=== PATIENT | female | born 1940 | race Caucasian/White ===

== ENCOUNTER 2020-10-18 11:02 | Outpatient (REF) | payer MEDICARE, MEDICAID, SELFPAY | END 2020-10-18 11:03 | disposition home or self-care (01) | LOC: HO.LAB 11:02 | PROVIDERS: Visit Provider Internal Medicine | DX: Z20.822 Contact with and (suspected) exposure to COVID-19 (principal) | CPT/HCPCS: 36415; C9803; U0003 ==

== ENCOUNTER 2020-10-27 10:34 | Outpatient (REF) | payer MEDICARE, MEDICAID, SELFPAY | END 2020-10-27 10:35 | disposition home or self-care (01) | LOC: HO.LAB 10:34 | PROVIDERS: Visit Provider Internal Medicine | DX: Z20.822 Contact with and (suspected) exposure to COVID-19 (principal) | CPT/HCPCS: 36415; C9803; U0003 ==

== ENCOUNTER 2022-09-27 13:50 | Emergency (ER) | payer MEDICARE, MEDICAID, SELFPAY ==
--- NOTE | 2022-09-27 14:08 | ECG_ITS ---
Test Reason : FALL Blood Pressure : / mmHG Vent. Rate : 074 BPM Atrial Rate : 074 BPM P-R Int : 130 ms QRS Dur : 084 ms QT Int : 378 ms P-R-T Axes : 023 -11 -23 degrees QTc Int : 419 ms Normal sinus rhythm Septal infarct (cited on or before 01-MAY-2019) Abnormal ECG When compared with ECG of 01-MAY-2019 08:05, Premature atrial complexes are no longer Present Nonspecific T wave abnormality now evident in Anterolateral leads Referred By: Ana Sanchez Electronically Signed By:PASQUALE ZAVALA
[2022-09-27 14:14] VITALS: BMI 28.3
--- NOTE | 2022-09-27 14:17 | ED.GENADULT ---
HPI - General Adult General Chief complaint: Fall Stated complaint: AMS Time Seen by Provider: 09/27/22 14:07 Source: patient and EMS Mode of arrival: EMS History of Present Illness HPI narrative: 81-year-old female with what appears to be possible expressive aphasia is communicating that she was walking with her walker when she fell and reports left shoulder pain. We are attempting obtain collateral information and patient is currently hemodynamically stable without any neurologic defects. As per EMS that this other patient fall and so rendered day and due to patient's developmental delays and difficulties with speech as well as hearing deficits they were concerned that she was an altered mental status. Related Data Allergies Allergy/AdvReac Type Severity Reaction Status Date / Time bacitracin [From CORTISPORIN] Allergy Unknown UNKNOWN Unverified 06/30/20 15:57 hydrocortisone Allergy Unknown UNKNOWN Unverified 06/30/20 15:57 [From CORTISPORIN] neomycin [From CORTISPORIN] Allergy Unknown UNKNOWN Unverified 06/30/20 15:57 polymyxin B Allergy Unknown UNKNOWN Unverified 06/30/20 15:57 [From CORTISPORIN] Cortisporin Allergy Unknown Uncoded 07/06/11 00:00 From CORTISPORIN Allergy Unknown UNKNOWN Uncoded 06/30/20 15:57 Review of Systems Review of Systems: Pertinent positives and negatives as stated in HPI PMFSH Past Medical History Source: nursing notes reviewed Social History Social History Advance Directives: No Advance Directives Information Provided: No Physical Exam ED Vital Signs: Vital Signs - 24 hr 09/27/22 15:04 Temperature 98.1 F Pulse Rate 74 Respiratory Rate 18 Blood Pressure 185/96 H Pulse Oximetry 97 Oxygen Delivery Method Room Air BMI result Body Mass Index 28.3 VITAL SIGNS: Reviewed. GENERAL: Well developed, well nourished, in no acute distress. HEAD: Normocephalic/atraumatic EYES: PERRLA, EOMI EARS: Ext canals without abnormality OROPHARYNX: no oral lesions noted, posterior pharynx clear NECK: Supple, no adenopathy LUNGS: Normal breath sounds. No adventitious sounds or accessory muscle use. SpO2<97> CARDIOVASCULAR: Regular rate and rhythm without noted murmurs, no JVD or lower extremity edema. ABDOMEN: Soft, non-tender, non-distended with bowel sounds. MUSCULOSKELETAL: No tenderness, deformities, or effusions noted on gross inspection. EXTREMITIES: No cyanosis, clubbing or edema; SHOULDER PAIN: No deformity, erythema, ecchymosis, laceration SKIN: Inspection of the skin reveals no rashes NEUROLOGIC: Alert and oriented x 4. Strength and sensation to light touch were grossly intact x 4. Course Course Course Narrative: 81-year-old female who after obtaining collateral information is under the care of a group that manages her money, patient has been deemed to live independently but receives 25 hours of assistance with everyday activities to include management of her funds. Patient has significant developmental delays and lives on her own otherwise. The guardian states that patient is at her baseline, I myself observed patient ambulating at baseline with her walker without noted difficulty. The walker is strictly for visual limitations that patient has at baseline and not due to motor deficits. I reviewed all of patient's laboratory an EKG workup and there are no acute findings to otherwise raise concerns. The guardian will be transported the patient back to her home. In addition, they will follow up with the patient in sure that she gets in to see her primary care provider. Medical Decision Making Lab Data Result Diagrams: 09/27/22 14:31 09/27/22 14:31 Labs: Lab Results 09/27/22 09/27/22 12 Range/Units 14:31 14:31 14:31 WBC 5.8 (4.8-10.8) X10*3/uL RBC 5.70 H (4.20-5.50) X10*6/uL Hgb 16.1 H (12.0-16.0) g/dl Hct 50.2 H (37.0-47.0) % MCV 88.1 (80.0-98.0) fL MCH 28.2 (27.0-33.0) pg MCHC 32.1 (31.0-35.0) g/dl RDW 14.6 (11.0-16.0) % Plt Count 211 (160-400) X10*3/uL MPV 10.4 (9.4-12.3) fL Immature Gran % (Auto) 0.2 (0.0-0.4) % Neut % (Auto) 67.0 (45-73) % Lymph % (Auto) 24.1 (20-40) % [place] % (Auto) 7.7 (2-11) % Eos % (Auto) 0.7 (0-4) % Baso % (Auto) 0.3 (0-2) % Lymph # (Auto) 1.4 (1.2-4.9) X10*3/uL [place] # (Auto) 0.5 (0.1-1.2) X10*3/uL Eos # (Auto) 0.0 (0.0-0.4) X10*3/uL Baso # (Auto) 0.0 (0.0-0.2) X10*3/uL Abs Immat Gran (auto) 0.01 (0.00-0.03) X10*3/uL Absolute Neuts (auto) 3.9 (2.0-8.3) x10*3/uL Absolute Nucleated RBC 0.000 (0.0-0.012) X10*3/uL Nucleated RBC % (auto) 0.0 (0.0-0.2) /100WBC PT 11.0 (10.0-13.1) SEC INR 1.0 (0.9-1.1) Sodium 141 (135-145) mmol/L Potassium 3.9 (3.3-5.1) mmol/L Chloride 107 (96-108) mmol/L Carbon Dioxide 27 (22-29) mmol/L Anion Gap 11 L (12-20) BUN 16 (9-16) mg/dL Creatinine 0.83 (0.5-1.4) mg/dL Estim Creat Clear Calc 46.8 Estimated GFR > 60 Random Glucose 107 (60-115) mg/dL Lactic Acid (0.5-2.0) mmol/L Calcium 9.2 (8.4-10.2) mg/dL Total Bilirubin 0.7 (0.0-1.0) mg/dL AST 13 (5-31) U/L ALT 6 (0-31) U/L Alkaline Phosphatase 78 (39-117) U/L Troponin I High Sens (<3.5-17.0) ng/L Total Protein 6.9 (6.5-8.0) g/dL Albumin 4.0 (3.5-5.0) g/dL Influenza Type A (PCR) (Negative) Influenza Type B (PCR) (Negative) RSV RNA Qual (PCR) (Negative) SARS-CoV-2 RNA (RT-PCR) (Negative) 09/27/22 09/27/22 09/27/22 Range/Units 14:31 14:31 14:31 WBC (4.8-10.8) X10*3/uL RBC (4.20-5.50) X10*6/uL Hgb (12.0-16.0) g/dl Hct (37.0-47.0) % MCV (80.0-98.0) fL MCH (27.0-33.0) pg MCHC (31.0-35.0) g/dl RDW (11.0-16.0) % Plt Count (160-400) X10*3/uL MPV (9.4-12.3) fL Immature Gran % (Auto) (0.0-0.4) % Neut % (Auto) (45-73) % Lymph % (Auto) (20-40) % [place] % (Auto) (2-11) % Eos % (Auto) (0-4) % Baso % (Auto) (0-2) % Lymph # (Auto) (1.2-4.9) X10*3/uL [place] # (Auto) (0.1-1.2) X10*3/uL Eos # (Auto) (0.0-0.4) X10*3/uL Baso # (Auto) (0.0-0.2) X10*3/uL Abs Immat Gran (auto) (0.00-0.03) X10*3/uL Absolute Neuts (auto) (2.0-8.3) x10*3/uL Absolute Nucleated RBC (0.0-0.012) X10*3/uL Nucleated RBC % (auto) (0.0-0.2) /100WBC PT (10.0-13.1) SEC INR (0.9-1.1) Sodium (135-145) mmol/L Potassium (3.3-5.1) mmol/L Chloride (96-108) mmol/L Carbon Dioxide (22-29) mmol/L Anion Gap (12-20) BUN (9-16) mg/dL Creatinine (0.5-1.4) mg/dL Estim Creat Clear Calc Estimated GFR Random Glucose (60-115) mg/dL Lactic Acid 1.3 (0.5-2.0) mmol/L Calcium (8.4-10.2) mg/dL Total Bilirubin (0.0-1.0) mg/dL AST (5-31) U/L ALT (0-31) U/L Alkaline Phosphatase (39-117) U/L Troponin I High Sens 4.2 (<3.5-17.0) ng/L Total Protein (6.5-8.0) g/dL Albumin (3.5-5.0) g/dL Influenza Type A (PCR) NEGATIVE (Negative) Influenza Type B (PCR) NEGATIVE (Negative) RSV RNA Qual (PCR) NEGATIVE (Negative) SARS-CoV-2 RNA (RT-PCR) NEGATIVE (Negative) Independent Interpretation I performed an independent interpretation of an: EKG Interpretation: Normal sinus rhythm, HR-74, no STEMI, NM/QRS/QTC are within normal limits. Discharge Plan Discharge Clinical Impression: Fall Patient Disposition: Home, Self-Care Instructions: Fall Prevention for Older Adults (ED) Additional Instructions: 1. Resume all home medications as prescribed. 2. Follow-up with primary care provider in the next 1-2 days. Return to the ER for any worsening symptoms.
[2022-09-27 14:38] LABS: MANUAL DIFF FLAG NO
[2022-09-27 14:40] LABS: Basophils Percent Auto 0.3 % (0-2); Eosinophils Percent Auto 0.7 % (0-4); Hematocrit 50.2 % (37.0-47.0); Hemoglobin 16.1 g/dl (12.0-16.0); Imm Gran Abs Auto 0.01 X10*3/uL (0.00-0.03); Imm Gran Pct Auto 0.2 % (0.0-0.4); Lymphocytes Absolute Auto 1.4 X10*3/uL (1.2-4.9); Lymphocytes Percent Auto 24.1 % (20-40); Mean Corpuscular HGB Conc 32.1 g/dl (31.0-35.0); Mean Corpuscular Hemoglobin 28.2 pg (27.0-33.0); Mean Corpuscular Volume 88.1 fL (80.0-98.0); Mean Platelet Volume 10.4 fL (9.4-12.3); Monocytes Absolute Auto 0.5 X10*3/uL (0.1-1.2); Monocytes Percent Auto 7.7 % (2-11); Neutrophils Absolute Auto 3.9 x10*3/uL (2.0-8.3); Platelet Count 211 X10*3/uL (160-400); Red Cell Distribution Width 14.6 % (11.0-16.0); White Blood Count 5.8 X10*3/uL (4.8-10.8)
[2022-09-27 14:53] LABS: Lactic Acid 1.3 mmol/L (0.5-2.0)
[2022-09-27 15:04] VITALS: BP 185/96; PULSE 74; RESP 18; TEMP 36.7; O2SAT 97
[2022-09-27 15:04] LABS: Troponin-I High Sensitivity 4.2 ng/L (<3.5-17.0)
[2022-09-27 15:08] LABS: Alanine Aminotransferase 6 U/L (0-31); Alkaline Phosphatase 78 U/L (39-117); Anion Gap 11 (12-20); Aspartate Amino Transferase 13 U/L (5-31); Bilirubin Total 0.7 mg/dL (0.0-1.0); Blood Urea Nitrogen 16 mg/dL (9-16); Calcium 9.2 mg/dL (8.4-10.2); Carbon Dioxide 27 mmol/L (22-29); Chloride 107 mmol/L (96-108); Creatinine Clr Calc Pharmacy 46.8; Estimated Glomerular Filt Rate > 60; Glucose Random 107 mg/dL (60-115); Potassium 3.9 mmol/L (3.3-5.1); Sodium 141 mmol/L (135-145); Total Protein 6.9 g/dL (6.5-8.0)
[2022-09-27 15:20] LABS: Influenza A PCR NEGATIVE (Negative); Influenza B PCR NEGATIVE (Negative); Resp Syncy Virus RNA Qual PCR NEGATIVE (Negative); SARS COV2 PCR INHOUSE NEGATIVE (Negative)
--- OUTSIDE RECORDS SUMMARY | 2022-09-27 15:41 | XMS_ITS | Continuity of Care Document ---
:1940 Author Organization [facility] Address [address] [place] [address]- Care Team Providers Name Role Phone Edilson [place], Stacy Tsang [facility] Care [id number] Date[facility] - 12/09/[address] [address] Attending Physician: Stacy Waggoner MD Admitting Physician: Stacy Waggoner MD Referring Physician: Stacy Waggoner MD Allergies, Adverse Reactions, Alerts Substance Reaction Severity Status Cortisporin Otic Active Medications Ativan Tablet = 0.25 mg, By Mouth, PRN as needed for anxiety, 0 Refills, Maintenance, 05/03/14 9:10:40 Start Date: 05/03/14 Status: OrderedCALCIUM CALCIUM, 500 mg, By Mouth, Daily, Refills 0, Maintenance, 05/03/14 9:05:23, Compound Start Date: 05/03/14 Status: OrderedCelexa 40 mg oral tablet 1 tablet = 40 mg, By Mouth, Daily, 0 Refills, Maintenance, 05/03/14 9:06:13 Start Date: 05/03/14 Status: OrderedColace sodium 100 mg oral capsule 1 capsule = 100 mg, By Mouth, 2 times a day, 0 Refills, Maintenance, 05/03/14 9:05:00 Start Date: 05/03/14 Status: OrderedEvista 60 mg oral tablet 1 tablet = 60 mg, By Mouth, Daily, 0 Refills, Maintenance, 05/03/14 9:04:48 Start Date: 05/03/14 Status: Orderedferrous sulfate 325 mg oral tablet 1 tablet = 325 mg, By Mouth, 3 times a day, 0 Refills, Maintenance, 05/03/14 9:06:00 Start Date: 05/03/14 Status: OrderedFluticasone Nasal Daily, 0 Refills, Maintenance, 05/03/14 9:08:43 Start Date: 05/03/14 Status: Orderedibuprofen 600 mg oral tablet 1 tablet = 600 mg, By Mouth, 4 times a day, PRN as needed for pain, 0 Refills, Maintenance, 149:11:25 Start Date: 05/03/14 Status: Orderedlisinopril 40 mg oral tablet 1 tablet = 40 mg, By Mouth, Daily, 0 Refills, Maintenance, 05/03/14 9:05:13 Start Date: 05/03/14 Status: Orderedmeloxicam 7.5 mg oral tablet 1 tablet = 7.5 mg, By Mouth, Daily, 0 Refills, Maintenance, 05/03/14 9:06:26 Start Date: 05/03/14 Status: OrderedMilk of Magnesia 30 mL, By Mouth, PRN as needed for constipation, 0 Refills, Maintenance, 05/03/14 9:10:12 Start Date: 05/03/14 Status: OrderedMultivitamin By Mouth, Daily, 0 Refills, Maintenance, 05/03/14 9:08:18 Start Date: 05/03/14 Status: OrderedNuLYTELY with Flavor Packs oral powder for reconstitution See Instructions, 4 liters By Mouth Once, # 4 L, 0 Refills, Maintenance, 05/03/14 9:55:15, 4 liters By Mouth Once Start Date: 05/03/14 Status: Orderedomeprazole 20 mg oral enteric coated capsule 1 capsule = 20 mg, By Mouth, Daily, 0 Refills, Maintenance, 05/03/14 9:06:58 Start Date: 05/03/14 Status: OrderedPOLYTHGLYCOL POWDER POLYTHGLYCOL POWDER, 17 Gm, By Mouth, Daily, Refills 0, Maintenance, 05/03/14 9:07:34, Compound Start Date: 05/03/14 Status: Orderedpravastatin 10 mg oral tablet 1 tablet = 10 mg, By Mouth, Daily at bedtime, 0 Refills, Maintenance, 05/03/14 9:06:42 Start Date: 05/03/14 Status: OrderedRobitussin DM Liquid PRN Pain , Severe, 0 Refills, Maintenance, 05/03/14 9:09:49 Start Date: 05/03/14 Status: OrderedTylenol Caplet = 325 mg, By Mouth, Every 4 hours, PRN as needed for pain, 0 Refills, Maintenance, 05/03/14 9:09:12 Start Date: 05/03/14 Status: OrderedTYLENOL WITH CODEIN #3 NEEDED TYLENOL WITH CODEIN #3 NEEDED, 1 TAB, By Mouth, Refills 0, Maintenance, 05/03/14 9:11:54, Compound Start Date: 05/03/14 Status: Ordered Problem List Condition Effective Dates Status Health Status Informant Anxiety(Confirmed) Active Benign essential Active hypertension(Confirmed) Diverticulosis of colon(Confirmed) Active GERD (gastroesophageal reflux Active disease)(Confirmed)
--- OUTSIDE RECORDS SUMMARY | 2022-09-27 15:41 | XMS_ITS ---
:1940 Author Name Waggoner, Stacy Care Team Providers Name Role Phone Stacy Waggoner Unavailable Unavailable PROBLEMS Type Condition ICD9-CM Code [id number] Onset Condition SNOMED Code Code Dates Status Problem Hallux valgus M20.11 Active 446014 01 (acquired), right foot Problem Hallux valgus M20.12 Active 956419 01 (acquired), left foot Problem Hammer toe of M20.42 Active 540865 [id number] left foot Problem Hammer toe of M20.41 Active 986836 [id number] right foot ALLERGIES Substance Reaction Event Type Date Status Cortisporin Unknown Drug Allergy Dec, Active ENCOUNTERS Encounter Location Date Diagnosis [address] Sep, [facility] [address] Jun, [place] [address] Dec, [place] unguium B35.1 ; [place] Pain in right t oe(s) [address] M79.674 ; Pain i n left toe(s) M79.675 a nd Ingrowing nail L 60.[address] Aug, [place] [address] May, [place] unguium B35.1 ; [place] Ingrowing nail L60.0 ; [address] Pain in right to e(s) M79.674 and Pain in left toe(s) M79. [address] February, [place] unguium B35.1 ; [place] Ingrowing nail L60.0 ; [address] Pain in right to e(s) M79.674 and Pain in left toe(s) M79. [address] Apr, [place] [address] Mar, [place] [address] Nov, [place] unguium B35.1 ; [place] Pain in right t oe(s) [address] M79.674 ; Pain i n left toe(s) M79.675 ; Hammer toe of left foot M20.42 ; Hammer toe of right foot M20.41 ; [place] llux valgus (acquired ), left foot M20.12 and Hallux valgus (acquired ), right foot M20.1 1 IMMUNIZATIONS Vaccine Route Administration Date Status COVID-19 Tutor Trove & Titus/Shola Unknown Aug 29, 2021 Administered SOCIAL HISTORY Qualifiers Date Never Smoker REASON FOR REFERRAL FUNCTIONAL STATUS PLAN OF CARE Activity Details Future/Pending Procedure [id number] NAIL, 6 [place] MOR E Future/Pending Procedure 98677-Gherjcga Plate Future/Pending Procedure [id number]-[id number] NAIL, 6 OR MOR E Future/Pending Procedure 55038-Bonunxld Plate Future/Pending Procedure 81208-Zpbaeqxn Plate Each Ad ditional Future/Pending Procedure [id number]-[id number] NAIL, 6 OR MOR E Future/Pending Procedure 05395-Sovvbihm Plate Future/Pending Procedure 70937-Hyhefdue Plate Each Ad ditional Future/Pending Procedure [id number] NAIL, 6 OR MOR E VITAL SIGNS Height 5 ft 4 in in 2022-01-04 Weight 159 lbs 2022-01-04 BMI 27.29 kg/m2 2022-01-04 Heart Rate 78 /min 2019-12-07 Temperature 97.0 degrees Fahrenheit 2021-02-23 Blood pressure systolic 149 mm Hg 2021-02-23 Blood pressure diastolic 67 mm Hg 2021-02-23 MEDICATIONS Medication Instructions Dosage Frequency Start End Duration Statu s Date Date CeleXA 40 MG Orally Once a 0.5 tablet 24h 30 day(s) Active day Colace 100 MG Orally twice a 1 capsule 12h N ot-Takin day as needed g Calcium 500 MG Orally Twice a 1 tablet 12h 30 day(s) Active day with meals Loratadine 10 MG Orally Once a 1 tablet 24h 30 day(s ) Active day Robitussin DM Active Lisinopril 40 MG Orally Once a 1 tablet 24h 30 day(s ) Not-Takin day g Senna 8.6 MG Orally Once a 2 tablets 24h 30 day(s) N ot-Takin day at bedtime g as needed Evista 60 MG Orally Once a 1 tablet 24h 30 day(s) No t-Takin day g amLODIPine Orally Once a 1 tablet 24h 30 day(s) Acti ve Besylate 2.5 MG day Multivitamin Active Pravastatin Orally Once a 1 tablet 24h 30 day(s) Act azucena Sodium 40 MG day Zantac 150 MG Orally Once a 1 tablet 24h 30 day(s) A ctive day Ferrous Sulfate Orally Once a 1 tablet 24h 30 day(s) Not-Takin 325 (65 Fe) MG day g Protopic Active PriLOSEC OTC 20 Orally Once a 1 tablet 24h 30 day(s) Active MG day 30 minutes before morning meal Milk of Magnesia Active Ibuprofen Active PROCEDURES Procedure Date Ordered Result Body Site Avulsion Plate Each Additional January 04, 2022 Avulsion Plate Each Additional February 23, 2021 DEBRIDE NAIL, 6 OR MORE May 25, 2021 Avulsion Plate February 23, 2021 Avulsion Plate Each Additional May 25, 2021 Avulsion Plate January 04, 2022 DEBRIDE NAIL, 6 OR MORE Dec 07, 2019 DEBRIDE NAIL, 6 OR MORE January 04, 2022 Avulsion Plate May 25, 2021 DEBRIDE NAIL, OR MORE February 23, 2021 RESULTS No Results REASON FOR VISIT Insurance Providers [facility] Member Patient Patient Patient Patient Patient Subscriber Subscriber Subscriber Group Insurance Plan Plan Plan Plan ID Relationship Address Phone Name Date of ID Name Date of No Type Insurance Insurance Insurance Coverage to Subscriber Address Phone Name Dates Medicare National [id number] Medicare self Pinky [id number] Govt Sv[address] [facility] [address] [facility] [place] [address] MEDICAL (GENERAL) HISTORY Type Description Date Medical History Anxiety Medical History Cataracts Surgical History No know Surgical history
--- OUTSIDE RECORDS SUMMARY | 2022-09-27 15:41 | XMS_ITS | Continuity of Care Document ---
:1940 Author Organization [facility] Address [address] [place] [address]- Care Team Providers Name Role Phone Stacy Waggoner MD Primary Care Physician Encounter [facility] Date(s): 11/23/20 - 12/23/[address] [address] Attending Physician: Spike Neri Admitting Physician: Spike Neri Referring Physician: trSpike Allergies, Adverse Reactions, Alerts Substance Reaction Severity [...] 0 Refills, Maintenance, 05/03/14 9:09:49 Start Date: 7/21/14 Status: OrderedTylenol Caplet = 325 mg, By [...]
== END 2022-09-27 18:18 | disposition home or self-care (01) ==
PROVIDERS: Emergency Provider Student in an Organized Health Care Education/Training Program
DX: M25.512 Pain in left shoulder (principal); R41.82 Altered mental status, unspecified; Z79.899 Other long term (current) drug therapy; Z20.822 Contact with and (suspected) exposure to COVID-19
CPT/HCPCS: 0241U; 80053; 83605; 84484; 85025; 85610; 87040; 87147; 87205; 93005; 99283

== ENCOUNTER 2025-01-13 14:28 | Outpatient (REF) | payer MEDICARE, MEDICAID, SELFPAY ==
[2025-01-13 16:03] LABS: Vitamin B12 1046 pg/mL (200-900)
--- OUTSIDE RECORDS SUMMARY | 2025-01-13 17:15 | XMS_ITS | Clinical Summary ---
Author Organization [facility] Address [address] [place] [phone] Phone Care Team Providers Care Account Support Associate Name Role Phone Elio Box Primary Care Provider [phone] Allergies Active Allergy Reactions Criticality Noted Date Comments Gxwyhovr-Jwjuigbquh-Heyw-Hc 04/06/20 11 No reaction documented Medications aspirin 81 mg EC tablet Take 1 Tablet by mouth daily. 06/04/20 24 Active cholecalcifero l, vitamin D3, 25 mcg (1,000 unit) tablet,chewabl e Take 1 Tablet by mouth daily. 08/27/20 23 Active cyanocobalamin , vitamin B-12, 1,500 mcg tablet,chewabl e Take 1 Tablet by mouth daily. 03/03/20 24 Active guaifenesin/de xtromethorphan (ROBITUSSIN-DM ORAL) Take by mouth 4 times daily as needed. Active sennosides 8.6 mg capsule Take by mouth as needed. Active triamcinolone (KENALOG) 0.1 % ointment Apply 1 Film topically 2 times daily for 14 days. 02/06/20 24 Active calcium carbonate (CALCIUM 500 ORAL) Take 1 Tablet by mouth 2 times daily. 03/03/20 24 Active magnesium hydroxide (MILK OF MAGNESIA ORAL) Take by mouth. Prn Active MULTIVITAMIN ORAL Take 1 Tab by mouth daily. Active calcium carbonate (Tums) 500 mg (200 mg elemental calcium) chewable tablet Chew 1 tablet (500 mg total) 2 (two) times a day. 60 each 11 09/09/20 24 Active FeroSuL 325 mg (65 mg iron) tablet TAKE 1 TABLET BY MOUTH DAILY 90 tablet 1 09/22/20 24 Active cyanocobalamin (VITAMIN B-12) 500 mcg tablet TAKE 1 TABLET BY MOUTH DAILY 90 tablet 1 09/22/20 24 Active Ventolin HFA 90 mcg/actuation inhaler INHALE 2 PUFFS INTO THE LUNGS EVERY 4 HOURS NEEDED FOR COUGH 18 g 09/25/20 24 Active ketoconazole (NIZORAL) 2 % cream Apply to affected areas twice daily for 2 weeks 30 g 10/09/20 24 Active lisinopril (PRINIVIL,ZEST RIL) 40 mg tablet TAKE 1 TABLET BY MOUTH DAILY 90 tablet 3 11/27/19 25 Active omeprazole (PriLOSEC) [address] capsule TAKE 1 CAPSULE BY MOUTH DAILY 90 capsule 3 11/27/19 25 Active docusate sodium (COLACE) 100 mg capsule TAKE ONE CAPSULE BY MOUTH TWICE DAILY NEEDED FOR CONSTIPATION 180 capsule 11/27/19 25 Active lisinopriL (PRINIVIL,ZEST RIL) 20 mg tablet TAKE 1 TABLET BY MOUTH DAILY 90 tablet 3 11/27/19 25 Active famotidine (PEPCID) 40 mg tablet TAKE 1 TABLET BY MOUTH DAILY 90 tablet 1 11/27/19 25 Active famotidine (PEPCID) 40 mg tablet TAKE 1 TABLET BY MOUTH DAILY 30 tablet 3 11/27/19 25 Active raloxifene (EVISTA) 60 mg tablet TAKE 1 TABLET BY MOUTH DAILY 90 tablet 1 11/27/19 25 Active meloxicam (MOBIC) 15 mg tablet Take 1 tablet (15 mg total) by mouth 1 (one) time each day if needed for mild pain or moderate pain. 30 tablet 2 12/01/19 25 Active acetaminophen (Tylenol Extra Strength) 500 mg tablet Take 2 tablets (1,000 mg total) by mouth every 8 (eight) hours if needed for mild pain. 180 tablet 2 12/01/19 25 Active citalopram (CeleXA) 40 mg tablet TAKE 1 TABLET BY MOUTH DAILY 90 tablet 1 12/15/19 25 Active metoprolol succinate (TOPROL-XL) 25 mg 24 hr tablet TAKE 1 TABLET BY MOUTH DAILY 90 tablet 1 12/22/19 25 Active atorvastatin (LIPITOR) 20 mg tablet TAKE 1 TABLET BY MOUTH DAILY 90 tablet 1 12/22/19 25 Active metoprolol succinate (TOPROL-XL) 25 mg 24 hr tablet TAKE 1 TABLET BY MOUTH DAILY 90 tablet 1 12/22/19 25 Active loratadine (CLARITIN) 10 mg tablet TAKE 1 TABLET BY MOUTH DAILY 90 tablet 12/22/19 25 Active atorvastatin (LIPITOR) 20 mg tablet Take 1 Tablet by mouth daily. 06/04/20 24 025 Discontinued metoprolol succinate (TOPROL-XL) 25 mg 24 hr tablet Take 1 Tablet by mouth daily. 06/04/20 24 025 Discontinued loratadine (CLARITIN) 10 mg tablet TAKE 1 TABLET BY MOUTH DAILY 90 tablet 11/27/19 25 025 Discontinued Active Problems Problem Noted Date Diagnosed Date Hyperlipemia 12/10/2024 Other specified disorders of bone density and structure, unspecified site 12/10/2024 Occlusion and stenosis of unspecified carotid ar danisha 12/10/2024 Secondary hypertension 2024 Bilateral primary osteoarthritis of knee 024 Gastroesophageal reflux dise ase with esophagitis without hemorrhage 2024 Generalized anxiety disorder 2024 MCI (mild cognitive impairment) 2024 Allergic rhinitis 07/28/2024 Diverticulosis of colon 04/13/2024 Benign essential hypertension 04/13/2024 Vitamin D deficiency 08/30/2022 Vitamin B12 deficiency 08/30/2022 Basal cell carcinoma 01/03/2020 Difficulty swallowing liquids 05/27/2019 Overview (07/28/2024): Normal barium swallow, normal swallowing mechanism without eun aspiration 05/2019 Carotid stenosis 10/21/2018 Overview (07/28/2024): Sees Dr. Wiley Chronic venous insufficiency 01/15/2018 Erosive esophagitis 01/15/2018 Hearing loss in left ear 07/14/2015 Hiatal hernia 03/09/2014 Diverticulosis 05/08/2012 Mild intellectual disability 03/22/2011 GERD (gastroesophageal reflux disease) 1 OA (osteoarthritis) of knee 03/22/2011 Osteopenia 03/22/2011 Overview (07/28/2024): On Evista Lichen simplex chronicus 03/22/2011 Anxiety 03/22/2011 Dyslipidemia 03/22/2011 Hypertension 03/22/2011 Encounters Date Type Department Care Team Description 12/29/2024 Telephone Adult Medicine [address] [phone] Christian Lal LPN faxed order ([facility] # [id number] fax # [phone]) 12/28/2024 Telephone [facility] Cardiology [facility] [address] [place] [address] Elio Box PA Referral ( Attempt to reach pt, no response. Sent referral back. 06/04/24 [email or web address] referral. Aek) 12/10/2024 Billing Patient Not Present Adult Medicine [address] [phone] Elio Box PA Secondary hypertension (Primary Dx); MCI (mild cognitive impairment); Generalized anxiety disorder; Gastroesophageal reflux disease with esophagitis without hemorrhage; Hearing loss of left ear, unspecified hearing loss type; Primary osteoarthritis of both knees; Vitamin D deficiency; Chronic venous insufficiency; Allergic rhinitis, unspecified seasonality, unspecified trigger; Diverticulosis; Hyperlipidemia, unspecified hyperlipidemia type; Other specified disorders of bone density and structure, unspecified site; Occlusion and stenosis of unspecified carotid artery 12/01/2024 9:30 AM EST - 12/01/2024 11:59 PM EST Hospital Encounter Radiology Department - [address] [phone] Right arm pain; Right leg pain; Fall, initial encounter Discharge Disposition: Home or Self Care 12/01/2024 9:29 AM EST - 12/01/2024 11:59 PM EST Hospital Encounter XRAY - [address] [phone] Right arm pain; Right leg pain; Fall, initial encounter Discharge Disposition: Home or Self Care 12/01/2024 9:28 AM EST - 12/01/2024 11:59 PM EST Hospital Encounter XRAY [address], [place] [phone] Right arm pain; Right leg pain; Fall, initial encounter Discharge Disposition: Home or Self Care 12/01/2024 9:28 AM EST - 12/01/2024 11:59 PM EST Hospital Encounter XRJANICE - [address] [place], [place] [phone] Right arm pain; Right leg pain; Fall, initial encounter Discharge Disposition: Home or Self Care 12/01/2024 9:28 AM EST - 12/01/2024 11:59 PM EST Hospital Encounter XRJANICE - Ariela [address] [place] [address] Right arm pain; Right leg pain; Fall, initial encounter Discharge Disposition: Home or Self Care 12/01/2024 9:28 AM EST - 12/01/2024 11:59 PM EST Hospital Encounter XRJANICE - Ariela [address] [place], [place] [phone] Right arm pain; Right leg pain; Fall, initial encounter Discharge Disposition: Home or Self Care 12/01/2024 9:27 AM EST - 12/01/2024 11:59 PM EST Hospital Encounter XRJANICE - Ariela [place], [place] [phone] Right arm pain; Right leg pain; Fall, initial encounter Discharge Disposition: Home or Self Care 12/01/2024 8:30 AM EST Office Visit Adult Medicine [address] [phone] Elio Box PA Right arm pain (Primary Dx); Right leg pain; Fall, initial encounter 11/27/2024 Telephone Adult Medicine [address] [phone] Elio Box PA Arm Injury; Fall 11/24/2024 Telephone Adult Medicine [address] [phone] Elio Box PA vna 11/10/2024 Telephone Adult Medicine [id number] [place], [place] [phone] Elio Box PA VNA 10/16/2024 Telephone Adult Medicine [address] [phone] Mary Anne [place], [place] faxed order ([facility] order #[id number]) from Last 3 Months Immunizations Name Administration Dates Next Due Influenza trivalent, 0.5mL ( Fluad) 65yo and older 07/18/2023,07/05/2022,06/21/2020,07/03,07/02/2018,07/03/2016 Influenza trivalent, 0.5mL, preservative free (Fluarix; FluLaval; Fluzone) ages 6mo and older (Afluria) 3 years and older 06/21/2015 Influenza trivalent, with pr eservative (Fluzone; Afluria) 6mo and older 06/29/2013,07/06/2011 Influenza, Unspecified 06/14/2022,06/26/2021, Moderna SARS-CoV-2 COVID-19, mRNA, LNP-S, preservative free 03/01/2022 Pfizer (ages 12 & older) Biv alent, COVID-19 08/22/2022 Pneumococcal conjugate 13 va lent (Prevnar 13, PCV13) 2mo and older 03/06/2017,06/21/2015 Pneumococcal polysaccharide 23 valent (Pneumovax 23) 2yo and older 04/06/2011 TD, Adsorbed, Preservative Free 03/28/2015 Tdap Tetanus diptheria acell ular pertussis (Boostrix; Adacel) 7yo and older 03/31/2013 Zoster Live 04/17/2016 Zoster recombinant (Shingrix ) 19yo and older 02/05/2018 Surgical History Surgery Date Site/Laterality Comments OTHER SURGICAL HISTORY 07/2011 PROCEDURE: MAMMOGRAM OTHER SURGICAL HISTORY PROCEDURE: HISTORY OTHER; COMMENT: nose - removal of skin cancer CATARACT EXTRACTION 01/2013 Bilateral PROCEDURE: HISTORICAL CATARACT REMOVAL; COMMENT: b/l COLONOSCOPY 05/2014 PROCEDURE: HISTORICAL COLONOSCOPY; COMMENT: Dr. Hyde at [facility] - 3 mm cecal tubular adenoma UPPER GASTROINTESTINAL ENDOSCOPY 03/09/2014 PROCEDURE: ME UPPER GI ENDOSCOPY PERFORMED; COMMENT: No Barretts on biopsy, 3 cm HH. COLONOSCOPY 05/08/2012 PROCEDURE: HISTORICAL COLONOSCOPY; COMMENT: sigmoid diverticulosis; no ischemia. COLONOSCOPY 02/08/2012 PROCEDURE: HISTORICAL COLONOSCOPY; COMMENT: ulcers ascending colon: ischemic colitis. Medical History Medical History Date Comments Allergic rhinitis DX:Allergic rh initis Anxiety DX:Anxiety Hyperlipidemia DX:Hyperlipidemi a HTN (hypertension) DX:HTN (hyper tension) Difficulty swallowing liquids 05/27/2019 DX :Difficulty swallowing liquids; COMMENT: Resolved, Normal barium swallow, normal swallowing mechanism without eun aspiration 05/2019 Lichen simplex chronicus 03/22/2011 DX:Lich en simplex chronicus Chronic venous insufficiency 01/15/2018 DX: Chronic venous insufficiency History of ischemic colitis 02/12/2012 DX:H istory of ischemic colitis; COMMENT: Colonoscopy and bx 02/08/2012. Healed at [facility] 05/08/2012. Carotid stenosis 10/21/2018 DX:Carotid sten osis; COMMENT: Sees Dr. Wiley Dyslipidemia 03/22/2011 DX:Dyslipidemia Erosive esophagitis 01/15/2018 DX:Erosive e sophagitis GERD (gastroesophageal reflux disease) 1 DX:GERD (gastroesophageal reflux disease) Hearing loss in left ear 07/14/2015 DX:Hear ing loss in left ear Hiatal hernia 03/09/2014 DX:Hiatal hernia Hypertension 03/22/2011 DX:Hypertension Mild intellectual disability 03/22/2011 DX: Mild intellectual disability OA (osteoarthritis) of knee 03/22/2011 DX:O A (osteoarthritis) of knee Osteopenia 03/22/2011 DX:Osteopenia; C OMMENT: On Evista Tubular adenoma of colon 05/24/2014 DX:Tubu lar adenoma of colon; COMMENT: Colonoscopy at [facility] 05/2014 Diverticulosis 05/08/2012 DX:Diverticulosi s History of adenomatous polyp of colon 05/24/2014 DX:History of adenomatous polyp of colon; COMMENT: Colonoscopy at [facility] 05/2014 History of right mastoidectomy 10/06/2020 D X:History of right mastoidectomy; COMMENT: S/p R inner ear graft. [facility] Dysphagia DX:Dysphagia Choking DX:Choking Autism DX:Autism Hard of hearing DX:Hard of heari ng Family History Medical History Relation Name Comments No Known Problems Sister 1 Maryan No Known Problems Sister 2 Wendy No Known Problems Sister 3 Muna Breast cancer Neg Hx Colon cancer Neg Hx Relation Name Status Comments Father Maternal Grandfather Maternal Grandmother Mother Paternal Grandfather Paternal Grandmother Sister 1 Maryan Alive Sister 2 Wendy Alive Sister 3 Muna Alive Social History Tobacco Use Types Packs/Day Years Used Date Smoking Tobacco: Never Smokeless Tobacco: Never Tobacco Cessation:Counseling Given: Not Answered Alcohol Use Standard Drinks/Week Comments No 0 (1 standard drink = 0.6 oz pur e alcohol) Comments No Sex and Gender Information Value Date Recorded Sex Assigned at Not on file Legal Sex Female 6:58 AM EST Gender Identity Not on file Sexual Orientation Not on file Obstetrics History Last Filed Vital Signs Vital Sign Reading Time Taken Comments Blood Pressure 110/62 12/01/2024 8:47 AM EST Pulse 64 12/01/2024 8:47 AM EST Temperature 36.6 ??C (97.9 ??F) 12/01/2024 8:47 AM ES T Respiratory Rate 15 12/01/2024 8:47 AM EST Oxygen Saturation - - Inhaled Oxygen Concentration - - Weight 78 kg (172 lb) 12/01/2024 8:47 AM EST Height 157.5 cm (5' 2 ) 12/01/2024 8:47 AM EST Body Mass Index 31.46 12/01/2024 8:47 AM EST Plan of Treatment Upcoming Encounters Date Type Department Care Team (Late st Contact Info) Description 02/10/2025 12:00 PM EDT [facility] [address] [phone] Elio Box PA [address] [place] [id number] 03/17/2025 10:20 AM EDT Appointment Radiology Department - [address] [phone] Health Maintenance Due Date Last Done Comments RSV Immunization Adult Patients (1 - 1-dose 75+ series) 2015 Zoster Vaccines (2 of 2) 04/02/2018 02/05/2018, 0702/2016 Social Influencers of Health Screening 09/22/2022 COVID-19 Vaccine ( season) 2024 08/22/2022, 03/01/2022, 08/29/2021, Additional history exists Medicare Annual Wellness Visit 08/27/2024 08/27/2023 DTaP,Tdap,and Td Vaccines (3 - Td or Tdap) 03/28/2025 03/28/2015, 03/31/2013 Hypertension/CHF/CAD Annual BMP Blood Test 04/15/2025 04/15/2024, 04/15/2024 Depression Screening 12/01/2025 12/01/2024, 08/27/20 23 Falls Risk Assessment 12/01/2025 12/01/2024 , 12/01/2024, 09/20/2023 Cholesterol Screening (Lipid Panel) 04/15/2029 04/15/2024, 04/15/2024 Osteoporosis Screening (Bone Density Screening) 11/26/2034 11/26/2019 Pneumococcal Vaccine: 50+ Years Completed 03/06/2017, 06/21/2015, 04/06/2011 Influenza Vaccine Completed 07/02/2024, , 07/05/2022, Additional history exists HIB Vaccines Aged Out No longer eligi ble based on patient's age to complete this topic HPV Vaccines Aged Out No longer eligi ble based on patient's age to complete this topic Hepatitis A Vaccines Aged Out No long er eligible based on patient's age to complete this topic Hepatitis B Vaccines Aged Out No long er eligible based on patient's age to complete this topic IPV Vaccines Aged Out No longer eligi ble based on patient's age to complete this topic MMR Vaccines Aged Out No longer eligi ble based on patient's age to complete this topic Meningococcal ACWY Vaccine Aged Out N o longer eligible based on patient's age to complete this topic Meningococcal B Vacine Aged Out No lo nger eligible based on patient's age to complete this topic RSV Immunization Patients Under 20 months Aged Out No longer eligible based on patient's age to complete this topic Varicella Vaccines Aged Out No longer eligible based on patient's age to complete this topic Procedures Procedure Name Priority Date/Time Associated Diagnosis Comments VAS US DUPLEX LOWER EXT VENOUS RIGHT Routine 12/01/2024 10:32 AM EST Right leg pain Fall, initial encounter XR ELBOW 3+ VIEWS RIGHT Routine 12/01/2024 10:15 AM EST Right arm pain Right leg pain Fall, initial encounter XR FOOT 3+ VIEWS RIGHT Routine 12/01/2024 10:13 AM EST Right arm pain Right leg pain Fall, initial encounter XR ANKLE 3+ VIEWS RIGHT Routine 12/01/2024 10:08 AM EST Right arm pain Right leg pain Fall, initial encounter XR KNEE 4+ VIEWS RIGHT Routine 12/01/2024 10:06 AM EST Right arm pain Right leg pain Fall, initial encounter XR HUMERUS 2+ VIEWS RIGHT Routine 12/01/2024 9:58 AM EST Right arm pain Right leg pain Fall, initial encounter XR SHOULDER 2+ VIEWS RIGHT Routine 12/01/2024 9:57 AM EST Right arm pain Right leg pain Fall, initial encounter ANNUAL BMP BLOOD TEST Routine 04/15/2024 LIPID PANEL Routine 04/15/2024 FALLS RISK ASSESSMENT Routine 09/20/2023 DEPRESSION SCREENING Routine 08/27/2023 DXA BONE DENSITY STUDY 1+ SITS AXIAL SKEL Routine 11/26/2019 10:59 AM EST Other specified disorders of bone density and structure, unspecified site from Last 3 Months or Most Recently Relevant to Health Maintenance Results * Vascular US duplex lower extremity venous right (12/01/2024 10:32 AM EST) Anatomical Region Laterality Modality Vascular, Abdomen Ultrasound 12/01/2024 1:52 PM EST Impressions 12/01/2024 1:53 PM EST Impression: Normal right lower extremity deep venous Doppler examination. No evidence of DVT. -------- FINAL REPORT -------- Dictated By: Concepcion Alex Dictated Date: 12/01/2024 13:52 ET Assigned Physician: Concepcion Alex Reviewed and Electronically Signed By: Concepcion Alex Signed Date: 12/01/2024 13:53 ET Workstation ID: [id number] Transcribed By: Self Edit Transcribed Date: 12/01/2024 13:52 ET Narrative 12/01/2024 1:53 PM EST History: Right leg swelling/pain. DVT suspected. Right lower extremity deep venous Doppler examination: Real-time, duplex and color Doppler examination of the deep venous system of the right lower extremity was performed, including the common femoral, greater saphenous, profunda femora takeoff, femoral and popliteal venous segments, as well as the paired posterior tibial, peroneal and gastrocnemius veins in the calf. Color filling appears normal. There are no appreciable filling defects. Compression and augmentation were normal throughout. No abnormal fluid collections are demonstrated. Procedure Note Concepcion Alex MD - 12/01/2024 History: Right leg swelling/pain. DVT suspected. Right lower extremity deep venous Doppler examination: Real-time, duplexand color Doppler examination of the deep venous system of the right lowerextremity was performed, including the common femoral, greater saphenous,profunda femora takeoff, femoral and popliteal venous segments, as well asthe paired posterior tibial, peroneal and gastrocnemius veins in the calf. Color filling appears normal. There are no appreciable filling defects. Compression and augmentation were normal throughout. No abnormal fluid collections are demonstrated. IMPRESSION: Impression: Normal right lower extremity deep venous Doppler examination.No evidence of DVT. -------- FINAL REPORT -------- Dictated By: Concepcion Alex Dictated Date: 12/01/2024 13:52 ET Assigned Physician: Concepcion Alex Reviewed and Electronically Signed By: Concepcion Alex Signed Date: 12/01/2024 13:53 ET Workstation ID: [id number] Transcribed By: Self Edit Transcribed Date: 12/01/2024 13:52 ET us Elio FRANCISCO CV VASCULAR PROCEDURES Fi nal Result * XR Elbow 3+ Views Right (12/01/2024 10:15 AM EST) Anatomical Region Laterality Modality Upper Extremities, Elbow Right Radiogr aphic Imaging 12/01/2024 2:22 PM EST Narrative 12/01/2024 2:24 PM EST Right elbow, 3 views. History elbow pain. No prior studies are available for comparison. There is no visible fractures, dislocations or joint effusion. Alignment is maintained. CONCLUSIONS: No visible fractures or dislocations. -------- FINAL REPORT -------- Dictated By: Dilia Parks Dictated Date: 12/01/2024 14:22 ET Assigned Physician: Dilia Parks Reviewed and Electronically Signed By: Dilia Parks Signed Date: 12/01/2024 14:24 ET Workstation ID: [id number] Transcribed By: Self Edit Transcribed Date: 12/01/2024 14:22 ET Procedure Note Dilia Parks MD - 12/01/2024 Right elbow, 3 views. History elbow pain. No prior studies are available for comparison. There is no visiblefractures, dislocations or joint effusion. Alignment is maintained. CONCLUSIONS: No visible fractures or dislocations. -------- FINAL REPORT -------- Dictated By: Dilia Parks Dictated Date: 12/01/2024 14:22 ET Assigned Physician: Dilia Parks Reviewed and Electronically Signed By: Dilia Parks Signed Date: 12/01/2024 14:24 ET Workstation ID: [id number] Transcribed By: Self Edit Transcribed Date: 12/01/2024 14:22 ET Elio FRANCISCO IMMarina XR PROCEDURES Final R esult * XR Foot 3+ Views Right (12/01/2024 10:13 AM EST) Anatomical Region Laterality Modality Lower Extremities, Foot Right Radiogra phic Imaging 12/01/2024 2:20 PM EST Narrative 12/01/2024 2:22 PM EST Right foot, 2 views. History status post fall. Pain. There is no visible displaced fractures or dislocations. There is moderate hallux valgus deformity and slight subluxation in the first metatarsophalangeal joint. There are mild degenerative changes in the first metatarsophalangeal joint. There is no abnormal soft tissue calcifications. CONCLUSIONS: CONCLUSIONS: Hallux valgus deformity. Mild degenerative changes in the first metatarsophalangeal joint. Mild subluxation in the first metatarsophalangeal joint. -------- FINAL REPORT -------- Dictated By: Dilia Parks Dictated Date: 12/01/2024 14:20 ET Assigned Physician: Dilia Parks Reviewed and Electronically Signed By: Dilia Parks Signed Date: 12/01/2024 14:22 ET Workstation ID: [id number] Transcribed By: Self Edit Transcribed Date: 12/01/2024 14:20 ET Procedure Note Dilia Parks MD - 12/01/2024 Right foot, 2 views. History status post fall. Pain. There is no visible displaced fractures or dislocations. There is moderatehallux valgus deformity and slight subluxation in the firstmetatarsophalangeal joint. There are mild degenerative changes in thefirst metatarsophalangeal joint. There is no abnormal soft tissuecalcifications. CONCLUSIONS: CONCLUSIONS: Hallux valgus deformity. Mild degenerative changes in thefirst metatarsophalangeal joint. Mild subluxation in the firstmetatarsophalangeal joint. -------- FINAL REPORT -------- Dictated By: Dilia Parks Dictated Date: 12/01/2024 14:20 ET Assigned Physician: Dilia Parks Reviewed and Electronically Signed By: Dilia Parks Signed Date: 12/01/2024 14:22 ET Workstation ID: [id number] Transcribed By: Self Edit Transcribed Date: 12/01/2024 14:20 ET us Elio FRANCISCO IMG XR PROCEDURES Final R esult * XR Ankle 3+ Views Right (12/01/2024 10:08 AM EST) Anatomical Region Laterality Modality Lower Extremities, Ankle Right Radiogr aphic Imaging 12/01/2024 2:19 PM EST Narrative 12/01/2024 2:20 PM EST Right ankle, 3 views. History pain. There is soft tissue swelling more prominent over the lateral malleolus. There is no visible displaced fractures or dislocations. CONCLUSIONS: Marked soft tissue swelling. No visible fractures or dislocations. -------- FINAL REPORT -------- Dictated By: Dilia Parks Dictated Date: 12/01/2024 14:19 ET Assigned Physician: Dilia Parks Reviewed and Electronically Signed By: Dilia Parks Signed Date: 12/01/2024 14:20 ET Workstation ID: [id number] Transcribed By: Self Edit Transcribed Date: 12/01/2024 14:19 ET Procedure Note Dilia Parks MD - 12/01/2024 Right ankle, 3 views. History pain. There is soft tissue swelling more prominent over the lateral malleolus.There is no visible displaced fractures or dislocations. CONCLUSIONS: Marked soft tissue swelling. No visible fractures ordislocations. -------- FINAL REPORT -------- Dictated By: Dilia Parks Dictated Date: 12/01/2024 14:19 ET Assigned Physician: Dilia Parks Reviewed and Electronically Signed By: Dilia Parks Signed Date: 12/01/2024 14:20 ET Workstation ID: [id number] Transcribed By: Self Edit Transcribed Date: 12/01/2024 14:19 ET Elio FRANCISCO IMG XR PROCEDURES Final R esult * XR Knee 4+ Views Right (12/01/2024 10:06 AM EST) Anatomical Region Laterality Modality Lower Extremities, Knee Right [facility]ogra [facility] 12/01/2024 2:18 PM EST Narrative 12/01/2024 2:19 PM EST Right knee, 5 views. History pain. There is no visible fractures or dislocations. There is no joint effusion. Alignment is maintained. CONCLUSIONS: No visible fractures or dislocations. -------- FINAL REPORT -------- Dictated By: Dilia Parks Dictated Date: 12/01/2024 14:18 ET Assigned Physician: Dilia Parks Reviewed and Electronically Signed By: Dilia Parks Signed Date: 12/01/2024 14:19 ET Workstation ID: [id number] Transcribed By: Self Edit Transcribed Date: 12/01/2024 14:18 ET Procedure Note Dilia Parks MD - 12/01/2024 Right knee, 5 views. History pain. There is no visible fractures or dislocations. There is no joint effusion.Alignment is maintained. CONCLUSIONS: No visible fractures or dislocations. -------- FINAL REPORT -------- Dictated By: Dilia Parks Dictated Date: 12/01/2024 14:18 ET Assigned Physician: Dilia Parks Reviewed and Electronically Signed By: Dilia Parks Signed Date: 12/01/2024 14:19 ET Workstation ID: [id number] Transcribed By: Self Edit Transcribed Date: 12/01/2024 14:18 ET Elio FRANCISCO IMG XR PROCEDURES Final R esult * XR Humerus 2+ Views Right (12/01/2024 9:58 AM EST) Anatomical Region Laterality Modality Upper Extremities, Humerus Right Radio graphic Imaging 12/01/2024 2:17 PM EST Narrative 12/01/2024 2:18 PM EST Right humerus, 2 views. History pain. There is no visible fractures, dislocations or abnormal soft tissue calcifications. CONCLUSIONS: Unremarkable radiographs of the right humerus. -------- FINAL REPORT -------- Dictated By: Dilia Parks Dictated Date: 12/01/2024 14:17 ET Assigned Physician: Dilia Parks Reviewed and Electronically Signed By: Dilia Parks Signed Date: 12/01/2024 14:18 ET Workstation ID: [id number] Transcribed By: Self Edit Transcribed Date: 12/01/2024 14:17 ET Procedure Note Dilia Parks MD - 12/01/2024 Right humerus, 2 views. History pain. There is no visible fractures, dislocations or abnormal soft tissuecalcifications. CONCLUSIONS: Unremarkable radiographs of the right humerus. -------- FINAL REPORT -------- Dictated By: Dilia Parks Dictated Date: 12/01/2024 14:17 ET Assigned Physician: Dilia Parks Reviewed and Electronically Signed By: Dilia Parks Signed Date: 12/01/2024 14:18 ET Workstation ID: [id number] Transcribed By: Self Edit Transcribed Date: 12/01/2024 14:17 ET Elio FRANCISCO IM XR PROCEDURES Final R esult * XR Shoulder 2+ Views Right (12/01/2024 9:57 AM EST) Anatomical Region Laterality Modality Upper Extremities, Shoulder Right Radi ographic Imaging 12/01/2024 2:16 PM EST Narrative 12/01/2024 2:17 PM EST Right shoulder, 3 views. History pain. Axillary view was not obtained. There are mild degenerative changes in the AC joint and glenohumeral joint. There is arm narrowing of the shoulder outlet. No fractures, dislocations or abnormal soft tissue calcifications. CONCLUSIONS: Degenerative changes as detailed. -------- FINAL REPORT -------- Dictated By: Dilia Parks Dictated Date: 12/01/2024 14:16 ET Assigned Physician: Dilia Parks Reviewed and Electronically Signed By: Dilia Parks Signed Date: 12/01/2024 14:17 ET Workstation ID: [id number] Transcribed By: Self Edit Transcribed Date: 12/01/2024 14:16 ET Procedure Note Dilia Parks MD - 12/01/2024 Right shoulder, 3 views. History pain. Axillary view was not obtained. There are mild degenerative changes in theAC joint and glenohumeral joint. There is arm narrowing of the shoulderoutlet. No fractures, dislocations or abnormal soft tissuecalcifications. CONCLUSIONS: Degenerative changes as detailed. -------- FINAL REPORT -------- Dictated By: Dilia Parks Dictated Date: 12/01/2024 14:16 ET Assigned Physician: Dilia Pakrs Reviewed and Electronically Signed By: Dilia Parks Signed Date: 12/01/2024 14:17 ET Workstation ID: [id number] Transcribed By: Self Edit Transcribed Date: 12/01/2024 14:16 ET Result [facility] Elio FRANCISCO IMG XR PROCEDURES Final R esult * Annual BMP Blood Test (04/15/2024) [facility] Annual BMP Blood Test abstracted Result [facility] Provider HEALTH MAINTENANCE Final Result * (ABNORMAL) Lipid panel (04/15/2024) [facility] LDL/HDL Ratio 3 0 - 4 Triglycerides 98 0 - 150 mg/dL Cholesterol 229(A) 0 - 200 mg/dL HDL 76 >=40 mg/dL LDL Cholesterol 134(A) 0 - 100 mg/dL Blood Venous blood specimen / Unknown Result [facility] LAB BLOOD ORDERABLES Dian l Result * Falls Risk Assessment (09/20/2023) [facility] Falls Risk Assessment abstracted Result [facility] HEALTH MAINTENANCE Final Result * Depression Screening (08/27/2023) [facility] Depression Screening abstracted Result [facility] Provider HEALTH MAINTENANCE Final Result * DXA BONE DENSITY STUDY 1+ SITS AXIAL SKEL (11/26/2019 10:59 AM EST) Anatomical Region Laterality Modality Bone Densitometr y 08/05/2019 12:0 3 PM EDT Narrative 11/26/2019 11:40 AM EST BONE DENSITY (DEXA) ? Lumbar Spine T-score is -2.3. ?? (SD relative to 20-29 y/o adult) Z-score is 0.4. ??(SD relative to age matched peers) This is considered osteopenia by WHO criteria. Left Hip T-score is -2.3. Z-score is -0.1. This is considered osteopenia by WHO criteria. IMPRESSION: This patient is considered to have osteopenia by WHO criteria. This patient has a 16% risk of major osteoporotic fracture and a 4.8% risk of hip fracture over the next 10 years. (World Health Organization Fracture Risk Assessment) [facility] recommends using National Osteoporosis Foundation (NOF) guidelines in treatment decisions related to osteoporosis. NOF guidelines suggest considering treatment for postmenopausal women and men aged 50 or older presenting with the following: History of hip or vertebral fracture. T-score = -2.5 (DXA) at the femoral neck, total hip, or spine, after appropriate evaluation to exclude secondary causes. Low bone mass (T-score between -1.0 and -2.5 at the femoral neck or spine) AND a 10-year probability of a hip fracture = 3% OR a 10-year probability of a major osteoporosis-related fracture = 20% based on the [place]-adapted WHO algorithm Please note that all treatment decisions require clinical judgment and consideration of individual patient factors, including patient preferences, co-morbidities, previous drug use, risk factors not captured in the FRAX model (e.g., frailty, falls, vitamin D deficiency, increased bone turnover, interval significant decline in bone density) and possible under- or over-estimation of fracture risk by FRAX. Optional alternative screening schedule based on chris García., [facility] November 01, 2011 for patients with osteopenia (based on hip BMD T-score) is as follows: * ??advanced osteopenia (T scores -2.00 to -2.49), BMD testing every year * ??moderate osteopenia (T scores -1.50 to -1.99), BMD testing every 5 years mild osteopenia or normal BMD (T scores -1.50 and higher), BMD testing every 15 years Procedure Note Concepcion Alex - 10/02/2022 BONE DENSITY (DEXA) Lumbar Spine T-score is -2.3. (SD relative to 20-29 y/o adult) Z-score is 0.4. (SD relative to age matched peers) This is considered osteopenia by WHO criteria. Left Hip T-score is -2.3. Z-score is -0.1. This is considered osteopenia by WHO criteria. IMPRESSION: This patient is considered to have osteopenia by WHO criteria. Thispatient has a 16% risk of major osteoporotic fracture and a 4.8% risk of hip fracture over the next10 years. (World Health Organization Fracture Risk Assessment) [facility] recommendsusing National Osteoporosis Foundation (NOF) guidelines in treatment decisions related toosteoporosis. NOF guidelines suggest considering treatment for postmenopausal women and menaged 50 or older presenting with the following: History of hip or vertebral fracture. T-score = -2.5 (DXA) at the femoral neck, total hip, or spine, afterappropriate evaluation to exclude secondary causes. Low bone mass (T-score between -1.0 and -2.5 at the femoral neck or spine)AND a 10-year probability of a hip fracture = 3% OR a 10-year probability of a majorosteoporosis-related fracture = 20% based on the [place]-adapted WHO algorithm Please note that all treatment decisions require clinical judgment andconsideration of individual patient factors, including patient preferences, co- morbidities,previous drug use, risk factors not captured in the FRAX model (e.g., frailty, falls, vitaminD deficiency, increased bone turnover, interval significant decline in bone density) andpossible under- or over-estimation of fracture risk by FRAX. Optional alternative screening schedule based on chris García., NEJJanuary 2011 for patients with osteopenia (based on hip BMD T-score) is as follows: * advanced osteopenia (T scores -2.00 to -2.49), BMD testing every year * moderate osteopenia (T scores -1.50 to -1.99), BMD testing every 5years mild osteopenia or normal BMD (T scores -1.50 and higher), BMD testingevery 15 years Barbara FRANCISCO IMG DXA PROCEDURES Final Result from Last 3 Months or Most Recently Relevant to Health Maintenance Insurance [address] [place] [address] MEDICARE MEDICAID - [place] Care Teams Account Support Associate Relationship Specialty Start Date End Date Elio Box PA [address] [place] [id number] PCP - General Internal Medicine 04/19/21
--- OUTSIDE RECORDS SUMMARY | 2025-01-13 17:15 | XMS_ITS | Clinical Summary ---
Author Organization Unknown Care Team Providers Care Casting And Pasting Supervisor Name Role Phone ZIA FRANCISCO, CESARIO Unavailable Unavailabl galen LUIS RN, YAHAIRA Unavailable Unavailable Payers Payer Name Policy Type Policy Number Effective Date Expira tion Date [place] [id number] ON DEMAND MEDIC[place] - [place] [id number] Problems Condition Name Condition Details Condition Category Status Onset Date Resolution Date Last Treatment Date Treating Clinician Comments SECONDARY HYPERTENSION , UNSPECIFIED Active 2023-10 00:00: 00 MILD COGNITIVE IMPAIRMENT OF UNCERTAIN OR UNKNOWN ETIOLOGY Active 2023-10 00:00: 00 GENERALIZED ANXIETY DISORDER Active 2023-10 00:00: 00 GASTRO-ESOPH AGEAL REFLUX DIS WITH ESOPHAGITIS, WITHOUT BLEED Active 2023-10 00:00: 00 UNSPECIFIED HEARING LOSS, LEFT EAR Active 2023-10 00:00: 00 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 Active 2023-10 00:00: 00 OCCLUSION AND STENOSIS OF UNSPECIFIED CAROTID ARTERY Active 2023-10 00:00: 00 VITAMIN D DEFICIENCY, UNSPECIFIED Active 2023-10 00:00: 00 VENOUS INSUFFICIENC Y (CHRONIC) (PERIPHERAL) Active 2023-10 2 00:00: 00 OTH DISRD OF BONE DENSITY AND STRUCTURE, UNSPECIFIED SITE Active 2023-10 00:00: 00 HYPERLIPIDEM IA, UNSPECIFIED Active 2023-10 00:00: 00 DVRTCLOS OF LG INT W/O PERFORATION OR ABSCESS W/O BLEEDING Active 2023-10 2- 00:00: 00 ALLERGIC RHINITIS, UNSPECIFIED Active 2023-10 00:00: 00 Allergies, Adverse Reactions, Alerts Allergy Name Allergy Type Status Severity Reaction(s) Onset Date Inactive Date Treating Clinician Comments ANNEPORIN Propensity to adverse reactions Active 2023-10 08:21: 38 Medications Ordered Medication Name Filled Medication Name Start Date Stop Date Current Medication? Ordering Clinician Indication Dosage Frequency Signature (SIG) Comments Components Oyster Shell Calcium-500 500 mg (as carbonate 1,250 mg) tablet 2023-10 00:00: 00 09-16 23:59 :00 No [id number] Per instruc tions TWICE DAILY Per instructio ns TWICE DAILY (route: oral) Med Classific ation: Electroly te Balance-N utritiona l Products aspirin 81 mg tablet,javon yed release 2023-10 00:00: 00 Yes [id number] 1 tablet ONCE DAILY 1 tablet ONCE DAILY (route: oral) Med Classific ation: Hematolog ical Agents acetaminoph en 325 mg tablet 2023-10 00:00: 00 Yes [id number] 2 tablet NEEDED 2 tablet NEEDED (route: oral) Med Classific ation: Analgesic , Anti-infl ammatory or Antipyret ic albuterol sulfate HFA 90 mcg/actuati on aerosol inhaler 2023-10 00:00: 00 Yes [id number] 2 puff NEEDED 2 puff NEEDED (route: inhalation ) Med Classific ation: Respirato ry Therapy Agents atorvastati n 20 mg tablet 2023-10 00:00: 00 12-02 23:59 :00 No [id number] 1 tablet BEDTIME 1 tablet BEDTIME (route: oral) Med Classific ation: Cardiovas cular Therapy Agents Child Robitussin Cough-Chest DM 5 mg-100 mg/5 mL oral liquid 2023-10 00:00: 00 Yes [id number] 20 mL NEEDED 20 mL NEEDED (route: oral) Med Classific ation: Respirato ry Therapy Agents cholecalcif massiel (vitamin D3) 25 mcg (1,000 unit) chewable tablet 2023-10 00:00: 00 Yes [id number] 1 tablet DAILY 1 tablet DAILY (route: oral) Med Classific ation: Electroly te Balance-N utritiona l Products citalopram 40 mg tablet 2023-10 00:00: 00 Yes [id number] 1 tablet DAILY 1 tablet DAILY (route: oral) Med Classific ation: Central Nervous System Agents Colace 100 mg capsule 2023-10 00:00: 00 Yes [id number] 1 capsule 2 TIMES DAILY 1 capsule 2 TIMES DAILY (route: oral) Med Classific ation: Gastroint estinal Therapy Agents cyanocobala min (vit B-12) 1,500 mcg chewable tablet 2023-10 00:00: 00 Yes [id number] 1 tablet DAILY 1 tablet DAILY (route: oral) Med Classific ation: Electroly te Balance-N utritiona l Products famotidine 40 mg tablet 2023-10 00:00: 00 Yes [id number] 1 tablet DAILY 1 tablet DAILY (route: oral) Med Classific ation: Gastroint estinal Therapy Agents ferrous sulfate 325 mg (65 mg iron) tablet 2023-10 00:00: 00 Yes [id number] 1 tablet DAILY 1 tablet DAILY (route: oral) Med Classific ation: Electroly te Balance-N utritiona l Products lisinopril 40 mg tablet 2023-10 00:00: 00 Yes [id number] 1 tablet DAILY 1 tablet DAILY (route: oral) Med Classific ation: Cardiovas cular Therapy Agents loratadine 10 mg tablet 2023-10 00:00: 00 Yes [id number] 1 tablet DAILY 1 tablet DAILY (route: oral) Med Classific ation: Respirato ry Therapy Agents metoprolol succinate ER 25 mg tablet,exte nded release 24 hr 2023-10 00:00: 00 Yes [id number] 1 tablet DAILY 1 tablet DAILY (route: oral) Med Classific ation: Cardiovas cular Therapy Agents Milk of Magnesia 400 mg/5 mL oral suspension 2023-10 00:00: 00 Yes [id number] 30 mL NEEDED 30 mL NEEDED (route: oral) Med Classific ation: Gastroint estinal Therapy Agents multivitami n tablet 2023-10 00:00: 00 Yes [id number] 1 tablet DAILY 1 tablet DAILY (route: oral) Med Classific ation: Electroly te Balance-N utritiona l Products omeprazole 20 mg capsule,del ayed release 2023-10 00:00: 00 Yes [id number] 1 capsule DAILY 1 capsule DAILY (route: oral) Med Classific ation: Gastroint estinal Therapy Agents raloxifene 60 mg tablet 2023-10 00:00: 00 12-02 23:59 :00 No [id number] 1 tablet BEDTIME 1 tablet BEDTIME (route: oral) Med Classific ation: Endocrine Senna Laxative 8.6 mg tablet 2023-10 00:00: 00 Yes [id number] 2 tablet NEEDED 2 tablet NEEDED (route: oral) Med Classific ation: Gastroint estinal Therapy Agents Tums 200 mg (as calcium carbonate 500 mg) chewable tablet 2023-10 00:00: 00 Yes [id number] 1 tablet 2 TIMES DAILY 1 tablet 2 TIMES DAILY (route: oral) Med Classific ation: Gastroint estinal Therapy Agents ketoconazol e 2 % topical cream 2023-10 00:00: 00 10-24 23:59 :00 No [id number] Per instruc tions 2 TIMES DAILY Per instructio ns 2 TIMES DAILY (route: topical) Med Classific ation: Dermatolo gical atorvastati n 20 mg tablet 2023-10 00:00: 00 Yes [id number] 1 tablet DAILY 1 tablet DAILY (route: oral) Med Classific ation: Cardiovas cular Therapy Agents meloxicam 15 mg tablet 12-02 00:00: 00 Yes [id number] 1 tablet EVERY AM 1 tablet EVERY AM (route: oral) Med Classific ation: Analgesic , Anti-infl ammatory or Antipyret ic raloxifene 60 mg tablet 2023-10 00:00: 00 Yes [id number] 1 tablet DAILY 1 tablet DAILY (route: oral) Med Classific ation: Endocrine Immunizations Ordered Immunization Name Filled Immunization Name Date Status Comments Refusal Reason INFLUENZA, TIV (INACTIVATED) 2024-08-14 00:00:00 Vital Signs Vital Name Observation Time Observation Value Commen ts Temperature 2025-01-10 11:11:00.000 97.6 [degF] Temperature 2025-01-04 10:38:00.000 97.3 [degF] Temperature 2024-12-21 10:47:00.000 97.6 [degF] Temperature 2024-12-14 10:41:00.000 97.8 [degF] Temperature 2024-12-07 10:45:00.000 97.7 [degF] Temperature 2024-11-30 11:13:00.000 97.6 [degF] Temperature 2024-11-23 10:47:00.000 97.3 [degF] Temperature 2024-11-16 10:18:00.000 97.6 [degF] Pulse 2025-01-10 11:11:00.000 64 /min Pulse 2025-01-04 10:38:00.000 73 /min Pulse 2024-12-21 10:47:00.000 68 /min Pulse 2024-12-14 10:41:00.000 64 /min Pulse 2024-12-07 10:46:00.000 62 /min Pulse 2024-11-30 11:13:00.000 70 /min Pulse 2024-11-23 10:47:00.000 64 /min Pulse 2024-11-16 10:18:00.000 60 /min O2 Saturation (%) 2025-01-10 11:26:00.000 96 % O2 Saturation (%) 2024-12-07 10:45:00.000 97 % O2 Saturation (%) 2024-11-30 11:14:00.000 98 % O2 Saturation (%) 2024-11-23 10:48:00.000 96 % Respirations 2025-01-10 11:11:00.000 16 /min Respirations 2025-01-04 10:38:00.000 16 /min Respirations 2024-12-21 10:47:00.000 16 /min Respirations 2024-12-14 10:41:00.000 16 /min Respirations 2024-12-07 10:46:00.000 16 /min Respirations 2024-11-30 11:13:00.000 16 /min Respirations 2024-11-23 10:47:00.000 16 /min Respirations 2024-11-16 10:18:00.000 16 /min Systolic Blood Pressure 2025-01-10 11:26:00.000 130 mm [Hg] Systolic Blood Pressure 2025-01-04 10:38:00.000 138 mm [Hg] Systolic Blood Pressure 2024-12-21 10:47:00.000 111 mm [Hg] Systolic Blood Pressure 2024-12-14 10:41:00.000 128 mm [Hg] Systolic Blood Pressure 2024-12-07 10:45:00.000 130 mm [Hg] Systolic Blood Pressure 2024-11-30 11:13:00.000 117 mm [Hg] Systolic Blood Pressure 2024-11-23 10:47:00.000 112 mm [Hg] Systolic Blood Pressure 2024-11-16 10:18:00.000 122 mm [Hg] Diastolic Blood Pressure 2025-01-10 11:26:00.000 70 mm [Hg] Diastolic Blood Pressure 2025-01-04 10:38:00.000 70 mm [Hg] Diastolic Blood Pressure 2024-12-21 10:47:00.000 60 mm [Hg] Diastolic Blood Pressure 2024-12-14 10:41:00.000 70 mm [Hg] Diastolic Blood Pressure 2024-12-07 10:45:00.000 60 mm [Hg] Diastolic Blood Pressure 2024-11-30 11:13:00.000 60 mm [Hg] Diastolic Blood Pressure 2024-11-23 10:47:00.000 60 mm [Hg] Diastolic Blood Pressure 2024-11-16 10:18:00.000 80 mm [Hg] Plan of Treatment Planned Activity Planned Date Details Comments Future Scheduled Test SKILLED NU RSE TO EVALUATE PATIENT, IDENTIFY PRIMARY AND CO-MORBID CONDITIONS CODED PER CODING GUIDELINES, AND DEVELOP PATIENT SPECIFIC PLAN OF CARE THAT INCLUDES PATIENT GOAL FOR HOME HEALTH. [code = SKILLED NURSE TO EVALUATE PATIENT, IDENTIFY PRIMARY AND CO-MORBID CONDITIONS CODED PER CODING GUIDELINES, AND DEVELOP PATIENT SPECIFIC PLAN OF CARE THAT INCLUDES PATIENT GOAL FOR HOME HEALTH.] Future Scheduled Test SKILLED NU RSE WILL MAINTAIN SITUATIONAL AWARENESS FOR SAFETY AND WILL NOTIFY CLINICAL EPOXY FABRICATION SUPERVISOR AND PHYSICIAN/PROVIDER WITH ANY CHANGE IN CONDITION. [code = SKILLED NURSE WILL MAINTAIN SITUATIONAL AWARENESS FOR SAFETY AND WILL NOTIFY CLINICAL EPOXY FABRICATION SUPERVISOR AND PHYSICIAN/PROVIDER WITH ANY CHANGE IN CONDITION.] Future Scheduled Test SKILLED NU RSE TO O/A OF PATIENTS MENTAL/BEHAVIORAL STATUS, ASSESS VITAL SIGNS WEEKLY ALLOW 2 PRNS FOR MEDICATION MANAGEMENT. [code = SKILLED NURSE TO O/A OF PATIENTS MENTAL/BEHAVIORAL STATUS, ASSESS VITAL SIGNS WEEKLY ALLOW 2 PRNS FOR MEDICATION MANAGEMENT.] Future Scheduled Test SKILLED NU RSE TO PERFORM HOME SAFETY AND FALL ASSESSMENT AND PROVIDE INSTRUCTION TO IMPLEMENT HOME SAFETY AND FALL PREVENTION STRATEGIES. [code = SKILLED NURSE TO PERFORM HOME SAFETY AND FALL ASSESSMENT AND PROVIDE INSTRUCTION TO IMPLEMENT HOME SAFETY AND FALL PREVENTION STRATEGIES.] Future Scheduled Test SKILLED NU RSE FOR O/A OF GENERAL HEALTH STATUS OF PAIN, CARDIAC, RESPIRATORY, GASTROINTESTINAL, GENITOURINARY, SKIN, NEUROLOGIC, ENDOCRINE SYSTEMS TO IDENTIFY CHANGES ASSOCIATED WITH EXACERBATION FOR EARLY INTERVENTION OF COMPLICATIONS [code = SKILLED NURSE FOR O/A OF GENERAL HEALTH STATUS OF PAIN, CARDIAC, RESPIRATORY, GASTROINTESTINAL, GENITOURINARY, SKIN, NEUROLOGIC, ENDOCRINE SYSTEMS TO IDENTIFY CHANGES ASSOCIATED WITH EXACERBATION FOR EARLY INTERVENTION OF COMPLICATIONS ] Future Scheduled Test SKILLED NU RSE TO ADMINISTER MEDICATIONS DAILY AND PRE-POUR MEDICATIONS EVERY PM PER MEDICATION LIST. [code = SKILLED NURSE TO ADMINISTER MEDICATIONS DAILY AND PRE-POUR MEDICATIONS EVERY PM PER MEDICATION LIST.] Future Scheduled Test PATIENT MA Y HAVE ONE SET OF EMERGENCY MEDICATION NOT TO BE PRE-POURED ANY SOONER THAN 24 HOURS BEFORE SEVERE INCLEMENT WEATHER OR EMERGENT EVENT AND FOLLOWING SKILLED NURSE EVALUATION OF PATIENT SAFETY. [code = PATIENT MAY HAVE ONE SET OF EMERGENCY MEDICATION NOT TO BE PRE-POURED ANY SOONER THAN 24 HOURS BEFORE SEVERE INCLEMENT WEATHER OR EMERGENT EVENT AND FOLLOWING SKILLED NURSE EVALUATION OF PATIENT SAFETY.] Future Scheduled Test SKILLED NU RSE TO ASSESS PATIENTS PSYCHOSOCIAL STATUS TO IDENTIFY POTENTIAL ISSUES THAT MAY COMPLICATE THE PROVISION OF THE PLAN OF CARE INCLUDING THE PATIENTS ABILITY TO ACCESS COMMUNITY RESOURCES AND PSYCHOSOCIAL SUPPORT SERVICES. [code = SKILLED NURSE TO ASSESS PATIENTS PSYCHOSOCIAL STATUS TO IDENTIFY POTENTIAL ISSUES THAT MAY COMPLICATE THE PROVISION OF THE PLAN OF CARE INCLUDING THE PATIENTS ABILITY TO ACCESS COMMUNITY RESOURCES AND PSYCHOSOCIAL SUPPORT SERVICES.] Future Scheduled Test MEDICATION S WILL BE HELD AND STORED IN MEDICATION SAFE. [code = MEDICATIONS WILL BE HELD AND STORED IN MEDICATION SAFE.] Future Scheduled Test SKILLED NU RSE MAY PICKUP AND TRANSPORT MEDICATIONS [code = SKILLED NURSE MAY PICKUP AND TRANSPORT MEDICATIONS] Future Scheduled Test SKILLED NU RSE TO PROVIDE TEACHING ON SIGNS AND SYMPTOMS AND MANAGEMENT OF HYPERTENSION. [code = SKILLED NURSE TO PROVIDE TEACHING ON SIGNS AND SYMPTOMS AND MANAGEMENT OF HYPERTENSION.] Future Scheduled Test SKILLED NU RSE FOR O/A AND SKILLED TEACHING OF COPING SKILLS TO MANAGE ANXIETY AND MAINTAIN SAFETY. [code = SKILLED NURSE FOR O/A AND SKILLED TEACHING OF COPING SKILLS TO MANAGE ANXIETY AND MAINTAIN SAFETY.] Goal Patient Goal - T O REMAIN AT HOME AND GO OUT IN THE COMMUNITY ... TO BE COMPLIANT WITH ALL MEDICATIONS ADMINISTERED AND PREFILLED BY NURSE Goal 2024-11-10 Patient Goal - T O REMAIN AT HOME AND GO OUT IN THE COMMUNITY ... Goal 2025-01-10 Patient Goal - T O REMAIN AT HOME AND GO OUT IN THE COMMUNITY ... Goal Provider Goal - A PLAN OF CARE WILL BE ESTABLISHED THAT MEETS PATIENT'S PENITENTIARY NEEDS AND INCLUDES PATIENT GOAL FOR HOME HEALTH. Goal Provider Goal - PATIENT WILL REMAIN SAFE IN THE COMMUNITY AND WILL BE FREE OF DANGER TO SELF AND OTHERS THROUGHOUT THE CERTIFICATION PERIOD. Goal Provider Goal - ALTERED MENTAL/BEHAVIORAL STATUS WILL BE IDENTIFIED PROMPTLY AND INTERVENTION INITIATED QUICKLY TO MINIMIZE ASSOCIATED RISKS THROUGHOUT CERTIFICATION PERIOD. Goal Provider Goal - PATIENT/CAREGIVER WILL VERBALIZE/DEMONSTRATE EFFECTIVE HOME SAFETY AND FALL PREVENTION STRATEGIES THROUGHOUT CERTIFICATION PERIOD. Goal Provider Goal - CHANGE IN GENERAL HEALTH STATUS WILL BE IDENTIFIED AND REPORTED TO PHYSICIAN FOR PROMPT INTERVENTION TO MINIMIZE ASSOCIATED RISKS THROUGHOUT CERTIFICATION PERIOD. Goal Provider Goal - PATIENT WILL COMPLY WITH MEDICATION WHEN SKILLED NURSE ADMINISTERS AND PRE-POURS MEDICATION THROUGHOUT CERTIFICATION PERIOD. Goal Provider Goal - MEDICATION WILL BE AVAILABLE DURING INCLEMENT WEATHER OR EMERGENT EVENT THROUGHOUT CERTIFICATION PERIOD. Goal Provider Goal - PSYCHOSOCIAL NEEDS WILL BE IDENTIFIED AND PLAN IMPLEMENTED TO MINIMIZE RISK THROUGHOUT CERTIFICATION PERIOD. Goal Provider Goal - MEDICATIONS WILL BE STORED IN MEDICATION SAFE FOR SAFETY. Goal Provider Goal - SKILLED NURSE PICKED UP AND TRANSPORTED MEDICATIONS FOR SAFETY. Goal Provider Goal - PATIENT/CAREGIVER WILL VERBALIZE SIGNS AND SYMPTOMS OF HYPERTENSION AND WILL BE ABLE TO DEMONSTRATE ABILITY TO MANAGE EXACERBATION BY END OF THE EPISODE. Goal Provider Goal - PATIENT WILL BE ABLE TO PERFORM DAILY FUNCTIONS AND HAVE OPTIMAL IMPROVEMENT IN LEVEL OF ANXIETY THROUGHOUT CERTIFICATION PERIOD. Progress Notes Progress Notes <paragraph>[Visit Date: 2024 by YAHAIRA LUIS RN]:</paragraph><paragraph>01/10/25- RECERT VISIT- PATIENT IS AN 84 YEAR OLD FEMALE RECEIVING DAILY SNV TO ASSESS MENTAL HEALTH STATUS AND SAFETY TO ADMINISTER DAILY MEDICATIONS AMD PREFILL PM MEDICATIONS. PATIENT LIVES ALONE AND HAS NO WILLING CAREGIVERS TO ASSIST WITH MEDICATION. PAST MEDICAL HISTORY INCLUDES HYPERTENSION, ANXIETY, COGNITIVE IMPAIRMENT, OBESITY, VENOUS INSUFFICIENTLY, OSTEOARTHRITIS IN KNEES. PATIENT HAS A HISTORY OF SPITTING MEDICATIONS OUT, ALL MEDICATIONS A CRUSHED WITH PILL CIGAR BANDER HAND AND MIXED WITH PUDDING IN SMALL AMOUNTS. PATIENT NEEDS TO BE OBSERVED SWALLOWING MEDICATIONS BECAUSE SHE WILL TRY TO SPIT THEM OUT.</paragraph> Encounters Start Date/Time End Date/Time Encounter Type Admission Type Attending [facility] Facility Care Department Encounter ID Discharge Date Discharge Status Discharge Condition Discharge Reason Percent Goals Met 2024-09-16 00:00:00 2025-01-13 00:00:00 Outpatient RECERTIFIC YAHAIRA NEGRETE [facility] [id number] 8.00
--- OUTSIDE RECORDS SUMMARY | 2025-01-13 17:15 | XMS_ITS | Patient Health Record ---
Author Organization [facility] Address [address] [place] [address] Care Team Providers Care Pocket Creaser Name Role Phone Edilson CLEVEL[place], Stacy Primary Care Provider Fabi terry Bernice Ventura Unavailable [phone] Allergies Allergen (clinical drug ingredient) Drug/Non Drug Allergy documented on EMR Reaction Allergy Type Onset Date Status Cortisporin Unknown Drug Allergy Activ e Reason For Referral No Information Medications Medication SIG (Take, Route, Frequency, Duration) Notes Start Date End Date Status Pravastatin Sodium 40 MG 1 tablet Orally Once a day for 30 day(s) Active Senna 8.6 MG 2 tablets at bedtime as needed Orally Once a day for 30 day(s) PRN Not-Taking PriLOSEC OTC 20 MG 1 tablet 30 minutes before morning meal Orally Once a day for 30 day(s) Active amLODIPine Besylate 2.5 MG 1 tablet Orally Once a day for 30 day(s) Active CeleXA 40 MG 0.5 tablet Orally On ce a day for 30 day(s) Active Calcium 500 MG 1 tablet with meals Orally Twice a day for 30 day(s) Active Ibuprofen Active Ferrous Sulfate 325 (65 Fe) MG 1 tablet Orally Once a day for 30 day(s) Not-Taking Lisinopril 40 MG 1 tablet Orally Once a day for 30 day(s) Not-Taking Colace 100 MG 1 capsule as needed Orally twice a day Not-Taking Evista 60 MG 1 tablet Orally Once a day for 30 day(s) Not-Taking Milk of Magnesia PRN Act azucena Robitussin DM PRN Active Protopic Active Multivitamin Active Loratadine 10 MG 1 tablet Orally Once a day for 30 day(s) Active Zantac 150 MG 1 tablet Orally Once a day for 30 day(s) Active Immunizations Vaccine Route Administration Date Status Comme nts COVID-19 [employer]ola Unknown 08/29/2021 Administered First Dose:12/26 Social History Tobacco Use: Social History Observation Description Date Details (start date - stop date) Never Smoker NA - NA Tobacco Use/Smoking Question Answer Notes Are you a: nonsmoker Additional Findings: Tobacco Non-User Current no n-smoker Alcohol Screen Question Answer Notes Did you have a drink containing alcohol in the p ast year? No Points 0 Interpretation Negative Tobacco use other than smoking: Question Answer Notes Are you an other tobacco user? No Problems Problem Type SNOMED Code ICD Code Onset Dates Problem Status W/U Status Risk Notes Problem Acquired hallux valgus (99229875) Hallux valgus (acquired), left foot (M20.12) Active confirmed Problem Acquired hallux valgus (97430537) Hallux valgus (acquired), right foot (M20.11) Active confirmed Problem 602654417 Hammer toe of right foot (M20.41) Active confirmed Problem 524130343 Hammer toe of left foot (M20.42) Active confirmed Plan Of Treatment Pending Test Test Name Order Date [id number] NAIL, 6 OR MORE 12/07/2019 [id number] NAIL, 6 OR MORE 02/23/2021 [id number] NAIL, 6 OR MORE 05/25/2021 [id number] NAIL, 6 OR MORE 01/04/2022 [id number] Plate 01/04/2022 [id number] Plate 02/23/2021 [id number] Plate 05/25/2021 [id number]-Kilchioy Plate Each Additional 09/2021 [id number] Plate Each Additional Insurance Providers Payer Name Payer Address Payer Phone Subscriber Number Group Number Insured Name Patient Relationship to Insured Coverage Start Date Coverage End Date [employer] [address] [place] [address] [id number] Pinky Meclhor Self - patient is the insured Medical (General) History Medical History History ICD Code Anxiety Cataracts Surgical History Surgery Date(Month/Year)
[2025-01-17 12:28] LABS: Treponema pallidum Ab FTA ABS Nonreactive (Nonreactive)
== END 2025-01-13 14:29 | disposition home or self-care (01) ==
LOC: HO.LAB 14:28
PROVIDERS: Visit Provider Psychiatry & Neurology Neurology
DX: G93.49 Other encephalopathy (principal)
CPT/HCPCS: 36415; 82607; 86780

== ENCOUNTER 2025-02-11 16:19 | Outpatient (REF) | payer MEDICARE, MEDICAID, SELFPAY ==
--- NOTE | ~2025-02-11 | CT_ITS ---
CLINICAL HISTORY: chronic static encephopathy CT head without contrast Comparison: None Findings: No intra-axial mass, midline shift, hydrocephalus, or acute hemorrhage. There is moderate diffuse atrophy. There is no sinus or mastoid fluid. The orbits are unremarkable. No skull fracture. IMPRESSION: 1. No acute intracranial findings. This document has been electronically signed by: Preston Pope MD on 02/13/2025 07:35:08
--- OUTSIDE RECORDS SUMMARY | 2025-02-11 17:33 | XMS_ITS | Clinical Summary ---
Author Organization [facility] Address [address] [place] [phone] Phone Care Team Providers Care Behavioral Sciences Department Chair Name Role Phone Elio Box Primary Care Provider [phone] Allergies Active Allergy Reactions Criticality Noted Date Comments Kvjeeref-Yyhrmmdope-Febu-Hc 04/06/20 11 No reaction documented Medications cholecalcifero l, vitamin D3, 25 mcg (1,000 [...] MOUTH DAILY 90 tablet 12/22/19 25 Active aspirin 81 mg EC tablet TAKE 1 TABLET BY MOUTH ONCE DAILY 30 tablet 3 01/27/20 25 Active mupirocin (BACTROBAN) 2 % ointment Apply topically 2 (two) times a day for 10 days. 22 g 1 02/11/20 25 025 Active aspirin 81 mg EC tablet Take 1 Tablet by mouth daily. 06/04/20 24 025 Discontinued Active Problems Problem Noted Date [...] Normal barium swallow, normal swallowing mechanism without enu aspiration 05/2019 Carotid stenosis 10/21/2018 Overview (07/28/2024): [...] Encounters Date Type Department Care Team Description 02/10/2025 12:00 PM EDT Office Visit Adult Medicine [address] [phone] Elio Box PA Routine general medical examination at a health care facility (Primary Dx); Furuncle; Mild intellectual disability; Gastroesophageal reflux disease without esophagitis; Primary hypertension; Osteopenia, unspecified location; Dyslipidemia; Anxiety; Vitamin D deficiency; Secondary hypertension; MCI (mild cognitive impairment); Generalized anxiety disorder; Hyperlipidemia, unspecified hyperlipidemia type; Benign essential hypertension; Gastroesophageal reflux disease with esophagitis without hemorrhage 02/10/2025 Telephone Adult Medicine [address] [phone] Elio Box PA faxed order ([facility] ) 01/28/2025 Telephone Adult Medicine [address] [phone] Chandrika Izaguirre MA 12/29/2024 Telephone Adult Medicine [address] [phone] Christian Lal LPN faxed order ([facility] # [id number] fax # [phone]) 12/28/2024 Telephone [facility] Cardiology [address] [place] [phone] Elio Box PA Referral ( Attempt to reach pt, no response. Sent referral back. 06/04/24 epic referral. Aek) 12/10/2024 Billing Patient Not Present Adult Medicine [address] [phone] Elio Box PA Secondary hypertension (Primary Dx); [...] PM EST Hospital Encounter Radiology Department - [place] [address] [place] [address] Right arm pain; Right leg pain; Fall, initial encounter Discharge Disposition: Home or Self Care 12/01/2024 9:29 AM EST - 12/01/2024 11:59 PM EST Hospital Encounter XRAY - [place] [address] [place] [address] Right arm pain; Right leg pain; Fall, initial encounter Discharge Disposition: Home or Self Care 12/01/2024 9:28 AM EST - 12/01/2024 11:59 PM EST Hospital Encounter XRAY - [place] [address] [place] [address] Right arm pain; Right leg pain; Fall, initial encounter Discharge Disposition: Home or Self Care 12/01/2024 9:28 AM EST - 12/01/2024 11:59 PM EST Hospital Encounter XRAY - [place], [place] [phone] Right arm pain; Right leg pain; Fall, initial encounter Discharge Disposition: Home or Self Care 12/01/2024 9:28 AM EST - 12/01/2024 11:59 PM EST Hospital Encounter XRAY - [place]ela [place], [place] [phone] Right arm pain; Right leg pain; Fall, initial encounter Discharge Disposition: Home or Self Care 12/01/2024 9:28 AM EST - 12/01/2024 11:59 PM EST Hospital Encounter XRAY - [place]ela [place], [place] [phone] Right arm pain; Right leg pain; Fall, initial encounter Discharge Disposition: Home or Self Care 12/01/2024 9:27 AM EST - 12/01/2024 11:59 PM EST Hospital Encounter XRAY - [place] [address] [place] [phone] Right arm pain; Right leg pain; Fall, initial encounter Discharge Disposition: Home or Self Care 12/01/2024 8:30 AM EST Office Visit Adult Medicine [address] [phone] Elio Box PA Right arm pain (Primary Dx); Right leg pain; Fall, initial encounter 11/27/2024 Telephone Adult Medicine [address] [phone] Elio Box PA Arm Injury; Fall 11/24/2024 Telephone Adult Medicine [address] [phone] Elio Box PA vna from Last 3 Months Immunizations Name Administration [...] PROCEDURE: HISTORICAL COLONOSCOPY; COMMENT: Dr. Hyde at [facility] - 3 mm cecal tubular adenoma UPPER GASTROINTESTINAL ENDOSCOPY 03/09/2014 PROCEDURE: LA UPPER GI ENDOSCOPY PERFORMED; COMMENT: No Barretts [...] lar adenoma of colon; COMMENT: Colonoscopy at [facility] 05/2014 Diverticulosis 05/08/2012 DX:Diverticulosi s History of adenomatous polyp of colon 05/24/2014 DX:History of adenomatous polyp of colon; COMMENT: Colonoscopy at [facility] 05/2014 History of right mastoidectomy 10/06/2020 [...] drink = 0.6 oz pur e alcohol) none Comments No Sex and Gender Information Value Date Recorded Sex Assigned at Not on file Legal Sex Female 6:58 AM EST Gender Identity Not on file Sexual Orientation Not on file Obstetrics History Last Filed Vital Signs Vital Sign Reading Time Taken Comments Blood Pressure 130/80 02/10/2025 12:20 PM EDT Pulse 61 02/10/2025 11:55 AM EDT Temperature 36 ??C (96.8 ??F) 02/10/2025 11:55 AM EDT Respiratory Rate 14 02/10/2025 11:55 AM EDT Oxygen Saturation - - Inhaled Oxygen Concentration - - Weight 79.2 kg (174 lb 9.6 oz) 02/10/2025 11:55 AM EDT Height 157.5 cm (5' 2 ) 02/10/2025 11:55 AM EDT Body Mass Index 31.93 02/10/2025 11:55 AM EDT Plan of Treatment Upcoming Encounters Date Type Department Care Team (Late st Contact Info) Description 03/17/2025 10:20 AM EDT Appointment Radiology Department [address] [phone] 08/27/2025 12:45 PM EST Office Visit Adult Medicine [address] [place] [phone] Elio Box PA [address] [place] [address] Health Maintenance Due Date Last Done Comments RSV Immunization Adult Patients (1 - 1-dose 75+ series) 2015 Zoster Vaccines (2 of 2) 04/02/2018 02/05/2018, 07/02/2016 Social Influencers of Health Screening 09/22/2022 COVID-19 Vaccine ( season) 2024 08/22/2022, 03/01/2022, 08/29/2021, Additional history exists Medicare Annual Wellness Visit 08/27/2024 08/27/2023 DTaP,Tdap,and Td Vaccines (3 - Td or Tdap) 03/28/2025 03/28/2015, 03/31/2013 Depression Screening 12/01/2025 12/01/2024, 08/27/20 23 Falls Risk Assessment 12/01/2025 12/01/2024 , 12/01/2024, 09/20/2023 Hypertension/CHF/CAD Annual BMP Blood Test 02/10/2026 02/10/2025, 04/15/2024, 04/15/2024 Cholesterol Screening (Lipid Panel) 02/10/2030 02/10/2025, 04/15/2024, 04/15/2024 Osteoporosis Screening (Bone Density Screening) [...] age to complete this topic Meningococcal B Vaccine Aged Out No l onger eligible based on patient's age to complete this topic RSV Immunization Patients Under 20 months Aged Out No longer eligible based on patient's age to complete this topic Varicella Vaccines Aged Out No longer eligible based on patient's age to complete this topic Procedures Procedure Name Priority Date/Time Associated Diagnosis Comments CBC WITH AUTO DIFFERENTIAL Routine 02/10/2025 12:29 PM EDT Secondary hypertension Mild intellectual disability Gastroesophageal reflux disease without esophagitis Osteopenia, unspecified location Dyslipidemia LIPID PANEL WITH REFLEX TO DIRECT LDL Routine 02/10/2025 12:29 PM EDT Secondary hypertension Mild intellectual disability Gastroesophageal reflux disease without esophagitis Osteopenia, unspecified location Dyslipidemia COMPREHENSIVE METABOLIC PANEL Routine 02/10/2025 12:29 PM EDT Secondary hypertension Mild intellectual disability Gastroesophageal reflux disease without esophagitis Osteopenia, unspecified location Dyslipidemia CBC AND DIFFERENTIAL Routine 02/10/2025 12:29 PM EDT Secondary hypertension Mild intellectual disability Gastroesophageal reflux disease without esophagitis Osteopenia, unspecified location Dyslipidemia VITAMIN B12 Routine 02/10/2025 12:29 PM EDT Secondary hypertension Mild intellectual disability Gastroesophageal reflux disease without esophagitis Osteopenia, unspecified location Dyslipidemia VITAMIN D 25 HYDROXY Routine 02/10/2025 12:29 PM EDT Secondary hypertension Mild intellectual disability Gastroesophageal reflux disease without esophagitis Osteopenia, unspecified location Dyslipidemia IRON AND TIBC Routine 02/10/2025 12:29 PM EDT Secondary hypertension Mild intellectual disability Gastroesophageal reflux disease without esophagitis Osteopenia, unspecified location Dyslipidemia Iron deficiency VAS US DUPLEX LOWER EXT VENOUS RIGHT [...] pain Right leg pain Fall, initial encounter FALLS RISK ASSESSMENT Routine 09/20/2023 DEPRESSION SCREENING Routine 08/27/2023 DXA BONE DENSITY STUDY 1+ SITS AXIAL SKEL Routine 11/26/2019 10:59 AM EST Other specified disorders of bone density and structure, unspecified site from Last 3 Months or Most Recently Relevant to Health Maintenance Results * Lipid panel with reflex to direct LDL (02/10/2025 12:29 PM EDT) [facility] Signature Cholesterol 165 0 - 200 mg/dL LAB CHEMISTRY METHOD 02/10/2025 9:29 PM EDT [facility] Triglycerides 79 0 - 150 mg/dL LAB CHEMISTRY METHOD 02/10/2025 9:29 PM EDT [facility] HDL 80 >=40 mg/dL LAB CHEMISTRY METHOD 02/10/2025 9:29 PM EDT [facility] LDL Calculated 69 0 - 100 mg/dL LAB CHEMISTRY METHOD 02/10/2025 9:29 PM EDT [facility] VLDL Cholesterol Avel 15.8 mg/dL LAB CHEMISTRY METHOD 02/10/2025 9:29 PM EDT [facility] Non HDL Chol. (LDL+VLDL) 85 <145 mg/dL LAB CHEMISTRY METHOD 02/10/2025 9:29 PM EDT [facility] Chol/HDL Ratio 2.1 0.0 - 4.4 LAB CHEMISTRY METHOD 02/10/2025 9:29 PM EDT [facility] Blood Venous blood specimen / Unknown Venipuncture / Unknown 02/10/2025 12:29 PM EDT 02/10/2025 12:29 PM EDT Elio FRANCISCO LAB BLOOD ORDERABLES Dian cook Result [facility] [address] [place] [address], * (ABNORMAL) CBC auto differential (02/10/2025 12:29 PM EDT) WBC 8.2 4.8 - 10.8 K/mcL LAB HEMETOLOGY METHOD 02/10/2025 2:58 PM EDT [facility] RBC 4.40 3.80 - 4.80 M/mcL LAB HEMETOLOGY METHOD 02/10/2025 2:58 PM EDT [facility] Hemoglobin 13.3 11.5 - 16.0 g/dL LAB HEMETOLOGY METHOD 02/10/2025 2:58 PM EDT [facility] Hematocrit 42.2 35.0 - 47.0 % LAB HEMETOLOGY METHOD 02/10/2025 2:58 PM EDT [facility] MCV 96.8 79.0 - 98.0 FL LAB HEMETOLOGY METHOD 02/10/2025 2:58 PM EDT [facility] MCH 30.5 27.0 - 32.0 pcg LAB HEMETOLOGY METHOD 02/10/2025 2:58 PM EDT [facility] MCHC 31.5(L) 32.0 - 37.0 g/dL LAB HEMETOLOGY METHOD 02/10/2025 2:58 PM EDT [facility] RDW 13.9 11.0 - 15.0 % LAB HEMETOLOGY METHOD 02/10/2025 2:58 PM T [facility] Platelets 214 130 - 400 K/mcL LAB HEMETOLOGY METHOD 02/10/2025 2:58 PM EDT [facility] MPV 10.8 7.0 - 11.0 FL LAB HEMETOLOGY METHOD 02/10/2025 2:58 PM EDT [facility] NRBC 0.0 <1.0 % LAB HEMETOLOGY METHOD 02/10/2025 2:58 PM [facility] NRBC Absolute 0.00 <0.10 K/mcL LAB HEMETOLOGY METHOD 02/10/2025 2:58 PM EDT [facility] Neutrophils Relative 61.0 % LAB HEMETOLOGY METHOD 02/10/2025 2:58 PM [facility] Lymphocytes Relative 27.7 % LAB HEMETOLOGY METHOD 02/10/2025 2:58 PM [facility] Monocytes Relative 8.4 % LAB HEMETOLOGY METHOD 02/10/2025 2:58 PM [facility] Eosinophils Relative 2.3 % LAB HEMETOLOGY METHOD 02/10/2025 2:58 PM [facility] Basophils Relative 0.2 % LAB HEMETOLOGY METHOD 02/10[facility]2025 2:58 [facility] Imm[facility] Granulocytes Relative 0.4 % LAB HEMETOLOGY METHOD 02/10/2025 2:58 PM T [facility] Neutrophils Absolute 4.98 1.50 - 7.00 K/mcL LAB HEMETOLOGY METHOD 02/10/2025 2:58 PM EDT [facility] Lymphocytes Absolute 2.26 1.00 - 5.00 K/mcL LAB HEMETOLOGY METHOD 02/10/2025 2:58 PM EDT [facility] Monocytes Absolute 0.69 0.20 - 1.00 K/mcL LAB HEMETOLOGY METHOD 02/10/2025 2:58 PM EDT [facility] Eosinophils Absolute 0.19 0.00 - 0.50 K/[facility] LAB HEMETOLOGY METHOD 02/10/2025 2:58 PM EDT [facility] Basophils Absolute 0.02 0.00 - 0.20 K/[facility] LAB HEMETOLOGY METHOD 02/10/2025 2:58 PM EDT [facility] Immature Granulocytes Absolute 0.03 0.00 - 0.03 K/[facility] LAB HEMETOLOGY METHOD 02/10/2025 2:58 PM EDT [facility] Blood Venous blood specimen / Unknown Venipuncture / Unknown 02/10/2025 12:29 PM EDT 02/10/2025 12:29 PM EDT Elio FRANCISCO LAB BLOOD ORDERABLES Dian cook Result [facility] [address] [place] [address], * Iron and TIBC (02/10/2025 12:29 PM EDT) Iron 56 40 - 150 mcg/dL LAB CHEMISTRY METHOD 02/10/2025 9:29 PM EDT [facility] TIBC 314 250 - 450 mcg/dL LAB CHEMISTRY METHOD 02/10/2025 9:29 PM EDT [facility] Iron Saturation 18 15 - 50 % LAB CHEMISTRY METHOD 02/10/2025 9:29 PM EDT [facility] Blood Venous blood specimen / Unknown Venipuncture / Unknown 02/10/2025 12:29 PM EDT 02/10/2025 12:29 PM EDT Elio FRANCISCO LAB BLOOD ORDERABLES Dian l Result [facility] [address] [place] [address], [place] [phone] * (ABNORMAL) Vitamin D 25 hydroxy (02/10/2025 12:29 PM EDT) [facility] Vit D, 25-Hydroxy 27.1(L) 30.0 - 80.0 ng/mL LAB CHEMISTRY METHOD 02/10/2025 10:48 PM EDT [facility] Blood Venous blood specimen / Unknown Venipuncture / Unknown 02/10/2025 12:29 PM EDT 02/10/2025 12:29 PM EDT Elio FRANCISCO LAB BLOOD ORDERABLES Dian l Result Performing Organization Address [facility]/ZIP Co de Phone Number [facility] [address] [place] [address], [place] [phone] * (ABNORMAL) Vitamin B12 (02/10/2025 12:29 PM EDT) [facility] Vitamin B-12 1,307(H) 250 - 900 pcg/mL LAB CHEMISTRY METHOD 02/10/2025 9:29 PM EDT [facility] Blood Venous blood specimen / Unknown Venipuncture / Unknown 02/10/2025 12:29 PM EDT 02/10/2025 12:29 PM EDT [facility] Todd Box [place] LAB BLOOD ORDERABLES Dian l Result Performing Organization Address City/[facility]/ZIP Co de Phone Number [facility] [address] [place] [address], [place] [phone] * Comprehensive metabolic panel (02/10/2025 12:29 PM EDT) Sodium 142 133 - 145 mmol/L LAB CHEMISTRY METHOD 02/10/2025 9:29 PM [facility] Potassium 4.6 3.5 - 5.5 mmol/L LAB CHEMISTRY METHOD 02/10/2025 9:29 PM [facility] Chloride 110 96 - 110 mmol/L LAB CHEMISTRY METHOD 02/10/2025 9:29 PM [facility] CO2 26 21 - 32 mmol/L LAB CHEMISTRY METHOD 02/10/2025 9:29 PM [facility] Anion Gap 6 3 - 11 LAB CHEMISTRY METHOD 02/10/2025 9:29 PM [facility] Glucose 92 70 - 100 mg/dL LAB CHEMISTRY METHOD 02/10/2025 9:29 PM [facility] BUN 15 5 - 25 mg/dL LAB CHEMISTRY METHOD 02/10/2025 9:29 PM [facility] Creatinine 0.91 0.50 - 1.10 mg/dL LAB CHEMISTRY METHOD 02/10/2025 9:29 PM [facility] eGFR 62 >=60 mL/min/1. 73m2 LAB CHEMISTRY METHOD 02/10/2025 9:29 PM [facility] Comment:Calculation based on the??Chronic Kidney Disease Epidemiology Collaboration (CKD-EPI) equation refit??without adjustment for race. BUN/Creatinine Ratio 16.5 LAB CHEMISTRY METHOD 02/10/2025 9:29 PM [facility] Calcium 8.6 8.5 - 10.5 mg/dL LAB CHEMISTRY METHOD 02/10/2025 9:29 PM [facility] AST (SGOT) 15 10 - 42 unit/L LAB CHEMISTRY METHOD 02/10/2025 9:29 PM [facility] ALT (SGPT) 19 10 - 60 unit/L LAB CHEMISTRY METHOD 02/10/2025 9:29 PM EDT [facility] Alkaline Phosphatase 69 42 - 121 unit/L LAB CHEMISTRY METHOD 02/10/2025 9:29 PM EDT [facility] Total Protein 6.7 6.0 - 8.0 g/dL LAB CHEMISTRY METHOD 02/10/2025 9:29 PM EDT [facility] Albumin 3.5 3.2 - 5.0 g/dL LAB CHEMISTRY METHOD 02/10/2025 9:29 PM EDT [facility] Total Bilirubin 0.5 0.0 - 1.4 mg/dL LAB CHEMISTRY METHOD 02/10/2025 9:29 PM EDT [facility] Blood Venous blood specimen / Unknown Venipuncture / Unknown 02/10/2025 12:29 PM EDT 02/10/2025 12:29 PM EDT Elio FRANCISCO LAB BLOOD ORDERABLES Dian l Result [facility] [address] [place] [address], * Vascular US duplex lower extremity venous right (12/01/2024 10:32 AM EST) Anatomical Region Laterality Modality Vascular, Abdomen Ultrasound 12/01/2024 1:52 PM EST Impressions 12/01/2024 1:53 PM EST Impression: Normal right lower extremity deep venous Doppler examination. No evidence of DVT. -------- FINAL REPORT -------- Dictated By: Concepcion Alex Dictated Date: 12/01/2024 13:52 ET Assigned Physician: Concecpion Alex Reviewed and Electronically Signed By: Concepcion Alex Signed Date: 12/01/2024 13:53 ET Workstation ID: [id number] Transcribed By: Self Edit Transcribed Date: 12/01/2024 [...] Signed Date: 12/01/2024 13:53 ET Workstation ID: [id number] Transcribed By: Self Edit Transcribed Date: 12/01/2024 13:52 ET Elio FRANCISCO CV VASCULAR PROCEDURES Fi nal [...] Signed Date: 12/01/2024 14:24 ET Workstation ID: [id number] Transcribed By: Self Edit Transcribed Date: 12/01/2024 [...] Signed Date: 12/01/2024 14:24 ET Workstation ID: [id number] Transcribed By: Self Edit Transcribed Date: 12/01/2024 14:22 ET Elio FRANCISCO IMG XR PROCEDURES Final R esult * XR Foot 3+ Views Right (12/01/2024 10:13 AM EST) Anatomical Region Laterality Modality Lower Extremities, Foot Right [facility] 12/01/2024 2:20 PM EST Narrative 12/01/2024 [...] Signed Date: 12/01/2024 14:22 ET Workstation ID: [id number] Transcribed By: Self Edit Transcribed Date: 12/01/2024 [...] Signed Date: 12/01/2024 14:22 ET Workstation ID: [id number] Transcribed By: Self Edit Transcribed Date: 12/01/2024 14:20 ET Elio FRANCISCO IMG XR PROCEDURES Final [...] Signed Date: 12/01/2024 14:20 ET Workstation ID: [id number] Transcribed By: Self Edit Transcribed Date: 12/01/2024 [...] Signed Date: 12/01/2024 14:20 ET Workstation ID: [id number] Transcribed By: Self Edit Transcribed Date: 12/01/2024 14:19 ET Elio FRANCISCO IMG XR PROCEDURES Final R esult * XR Knee 4+ Views Right (12/01/2024 10:06 AM EST) Anatomical Region Laterality Modality Lower Extremities, Knee Right [facility] 12/01/2024 2:18 PM EST Narrative 12/01/2024 [...] Signed Date: 12/01/2024 14:19 ET Workstation ID: [id number] Transcribed By: Self Edit Transcribed Date: 12/01/2024 [...] Signed Date: 12/01/2024 14:19 ET Workstation ID: [id number] Transcribed By: Self Edit Transcribed Date: 12/01/2024 [...] Signed Date: 12/01/2024 14:18 ET Workstation ID: [id number] Transcribed By: Self Edit Transcribed Date: 12/01/2024 [...] Signed Date: 12/01/2024 14:18 ET Workstation ID: [id number] Transcribed By: Self Edit Transcribed Date: 12/01/2024 14:17 ET Elio FRANCISCO IMG XR PROCEDURES Final [...] Signed Date: 12/01/2024 14:17 ET Workstation ID: [id number] Transcribed By: Self Edit Transcribed Date: 12/01/2024 [...] Signed Date: 12/01/2024 14:17 ET Workstation ID: [id number] Transcribed By: Self Edit Transcribed Date: 12/01/2024 14:16 ET Result [facility] Elio FRANCISCO IMG XR PROCEDURES Final R esult * Falls Risk Assessment (09/20/2023) Falls Risk Assessment abstracted Historical Provider MD HEALTH MAINTENANCE Final Result * Depression Screening (08/27/2023) Depression Screening abstracted Historical Provider MD HEALTH MAINTENANCE Final Result * DXA BONE [...] (World Health Organization Fracture Risk Assessment) [facility] Department of Internal Medicine recommends using National [...] alternative screening schedule based on chris García., [facility] November 01, 2011 for patients with osteopenia [...] (World Health Organization Fracture Risk Assessment) [facility] Department of Internal Medicine recommendsusing National Osteoporosis [...] alternative screening schedule based on chris García., [facility] for patients with osteopenia (based on hip BMD T-score) is as follows: * advanced osteopenia (T scores -2.00 to -2.49), BMD testing every year * moderate osteopenia (T scores -1.50 to -1.99), BMD testing every 5years mild osteopenia or normal BMD (T scores -1.50 and higher), BMD testingevery 15 years Barbara FRANCISCO [place] DXA PROCEDURES Final Result from Last 3 Months or Most Recently Relevant to Health Maintenance Insurance MEDIC[place] Care Teams Behavioral Sciences Department Chair Relationship Specialty Start Date End Date Elio Box PA [address] [place] [address] PCP - General Internal Medicine 04/19/21
--- OUTSIDE RECORDS SUMMARY | 2025-02-11 17:33 | XMS_ITS | Encounter Summary ---
Author Organization [facility] [place] [address] Care Team Providers Care Project Control Officer Name Role Phone Elio Box Primary Care Provider [phone] Reason for Visit * Reason Onset Date Comments faxed order 02/10/2025 [facility] Encounter Details Date Type Department Care Team ([facility] Contact Info) Description 02/10/2025 Telephone Adult Medicine [facility] [address] [place] [address] Elio Box PA [address], [place] [phone] faxed order ([facility] ) Social History Tobacco Use Types Packs/Day Years Used Date Smoking Tobacco: Never Smokeless Tobacco: Never Alcohol Use Standard Drinks/Week Comments No 0 (1 standard drink = 0.6 oz pur e alcohol) none Comments No Sex and Gender Information Value Date Recorded Sex Assigned at Not on file Legal Sex Female 6:58 AM EST Gender Identity Not on file Sexual Orientation Not on file documented as of this encounter Progress Notes * Dillon Mcintyre - 02/11/2025 8:56 AM EDT [facility] orders for hearing aids and walker received, please sign and fax to [phone] documented in this encounter Plan of Treatment Upcoming Encounters Date Type Department Care Team (Late st Contact Info) Description 03/17/2025 10:20 AM EDT Appointment Radiology Department - [address] [phone] 08/27/2025 12:45 PM EST Office Visit Adult Medicine [address] [phone] Elio Box PA [address] [place] [address] documented as of this encounter Visit Diagnoses Not on filedocumented in this encounter Additional Health Concerns Assessment Noted Time PHQ-9 Depression Total Score: 0 12/01/19 25 8:46 AM EST A fall risk assessment has been complete d for the patient 12/01/2024 8:46 AM EST documented as of this encounter Care Teams Project Control Officer Relationship Specialty Start Date End Date Elio Box PA [address] [place] [address] PCP - General Internal Medicine 04/19/21 documented as of this encounter
--- OUTSIDE RECORDS SUMMARY | 2025-02-11 17:33 | XMS_ITS | Patient Health Record ---
Author Organization [facility] Address [address] [place] [address] Care Team Providers Care Business Continuity Analyst Name Role Phone Edilson [place], Stacy Primary Care Provider Fabi terry Bernice Ventura Unavailable [phone] Allergies Allergen (clinical drug ingredient) Drug/Non Drug [...] Status Risk Notes Problem Acquired hallux valgus (89660903) Hallux valgus (acquired), left foot (M20.12) Active confirmed Problem Acquired hallux valgus (20046906) Hallux valgus (acquired), right foot (M20.11) Active confirmed Problem 581552532 Hammer toe of right foot (M20.41) Active confirmed Problem [id number] Hammer toe of left foot (M20.42) Active confirmed Plan Of Treatment Pending Test Test Name Order Date [id number] NAIL, 6 OR MORE 12/07/2019 [id number] NAIL, 6 OR MORE 02/23/2021 [id number] NAIL, 6 OR MORE 05/25/2021 [id number] NAIL, 6 OR MORE 01/04/2022 [id number] Plate 01/04/2022 [id number] Plate 02/23/2021 [id number] Plate 05/25/2021 [id number] Plate Each Additional 09/2021 [id number] Plate Each Additional Insurance Providers Payer Name Payer Address Payer Phone Subscriber Number Group Number Insured Name Patient Relationship to Insured Coverage Start Date Coverage End Date Medicare [employer] [address] [place] [address] [id number] Pinky Melchor Self - patient is the insured Medical (General) History Medical History History ICD Code Anxiety Cataracts Surgical History Surgery Date(Month/Year)
--- OUTSIDE RECORDS SUMMARY | 2025-02-11 17:33 | XMS_ITS | Clinical Summary ---
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 2023-10 2- 00:00: 00 ALLERGIC RHINITIS, UNSPECIFIED Active 2023-10 2 00:00: 00 Allergies, Adverse Reactions, Alerts Allergy [...] 2023-10 00:00: 00 09-16 23:59 :00 No [id number] Per instruc tions TWICE DAILY Per instructio ns TWICE DAILY (route: oral) Med Classific ation: Electroly te Balance-N utritiona l Products aspirin 81 mg tablet,javon yed release 2023-10 00:00: 00 Yes [id number] 1 tablet ONCE DAILY 1 tablet ONCE DAILY (route: oral) Med Classific ation: Hematolog ical Agents acetaminoph en 325 mg tablet 2023-10 00:00: 00 Yes [id number] 2 tablet NEEDED 2 tablet NEEDED (route: oral) Med Classific ation: Analgesic , Anti-infl ammatory or Antipyret ic albuterol sulfate HFA 90 mcg/actuati on aerosol inhaler 2023-10 00:00: 00 Yes [id number] 2 puff NEEDED 2 puff NEEDED (route: inhalation ) Med Classific ation: Respirato ry Therapy Agents atorvastati n 20 mg tablet 2023-10 00:00: 00 12-02 23:59 :00 No [id number] 1 tablet BEDTIME 1 tablet BEDTIME (route: oral) Med Classific ation: Cardiovas cular Therapy Agents Child Robitussin Cough-Chest DM 5 mg-100 mg/5 mL oral liquid 2023-10 00:00: 00 Yes [id number] 20 mL NEEDED 20 mL NEEDED (route: oral) Med Classific ation: Respirato ry Therapy Agents cholecalcif massiel (vitamin D3) 25 mcg (1,000 unit) chewable tablet 2023-10 00:00: 00 Yes [id number] 1 tablet DAILY 1 tablet DAILY (route: oral) Med Classific ation: Electroly te Balance-N utritiona l Products citalopram 40 mg tablet 2023-10 00:00: 00 Yes [id number] 1 tablet DAILY 1 tablet DAILY (route: oral) Med Classific ation: Central Nervous System Agents Colace 100 mg capsule 2023-10 00:00: 00 Yes [id number] 1 capsule 2 TIMES DAILY 1 capsule 2 TIMES DAILY (route: oral) Med Classific ation: Gastroint estinal Therapy Agents cyanocobala min (vit B-12) 1,500 mcg chewable tablet 2023-10 00:00: 00 Yes [id number] 1 tablet DAILY 1 tablet DAILY (route: oral) Med Classific ation: Electroly te Balance-N utritiona l Products famotidine 40 mg tablet 2023-10 00:00: 00 Yes [id number] 1 tablet DAILY 1 tablet DAILY (route: oral) Med Classific ation: Gastroint estinal Therapy Agents ferrous sulfate 325 mg (65 mg iron) tablet 2023-10 00:00: 00 Yes [id number] 1 tablet DAILY 1 tablet DAILY (route: oral) Med Classific ation: Electroly te Balance-N utritiona l Products lisinopril 40 mg tablet 2023-10 00:00: 00 Yes [id number] 1 tablet DAILY 1 tablet DAILY (route: oral) Med Classific ation: Cardiovas cular Therapy Agents loratadine 10 mg tablet 2023-10 00:00: 00 Yes [id number] 1 tablet DAILY 1 tablet DAILY (route: oral) Med Classific ation: Respirato ry Therapy Agents metoprolol succinate ER 25 mg tablet,exte nded release 24 hr 2023-10 00:00: 00 Yes [id number] 1 tablet DAILY 1 tablet DAILY (route: oral) Med Classific ation: Cardiovas cular Therapy Agents Milk of Magnesia 400 mg/5 mL oral suspension 2023-10 00:00: 00 Yes [id number] 30 mL NEEDED 30 mL NEEDED (route: oral) Med Classific ation: Gastroint estinal Therapy Agents multivitami n tablet 2023-10 00:00: 00 Yes [id number] 1 tablet DAILY 1 tablet DAILY (route: oral) Med Classific ation: Electroly te Balance-N utritiona l Products omeprazole 20 mg capsule,del ayed release 2023-10 00:00: 00 Yes [id number] 1 capsule DAILY 1 capsule DAILY (route: oral) Med Classific ation: Gastroint estinal Therapy Agents raloxifene 60 mg tablet 2023-10 00:00: 00 12-02 23:59 :00 No [id number] 1 tablet BEDTIME 1 tablet BEDTIME (route: oral) Med Classific ation: Endocrine Senna Laxative 8.6 mg tablet 2023-10 00:00: 00 Yes [id number] 2 tablet NEEDED 2 tablet NEEDED (route: oral) Med Classific ation: Gastroint estinal Therapy Agents Tums 200 mg (as calcium carbonate 500 mg) chewable tablet 2023-10 00:00: 00 Yes [id number] 1 tablet 2 TIMES DAILY 1 tablet 2 TIMES DAILY (route: oral) Med Classific ation: Gastroint estinal Therapy Agents ketoconazol e 2 % topical cream 2023-10 00:00: 00 10-24 23:59 :00 No [id number] Per instruc tions 2 TIMES DAILY Per instructio ns 2 TIMES DAILY (route: topical) Med Classific ation: Dermatolo gical atorvastati n 20 mg tablet 2023-10 00:00: 00 Yes [id number] 1 tablet DAILY 1 tablet DAILY (route: oral) Med Classific ation: Cardiovas cular Therapy Agents meloxicam 15 mg tablet 12-02 00:00: 00 Yes [id number] 1 tablet EVERY AM 1 tablet EVERY AM (route: oral) Med Classific ation: Analgesic , Anti-infl ammatory or Antipyret ic raloxifene 60 mg tablet 2023-10 00:00: 00 Yes [id number] 1 tablet DAILY 1 tablet DAILY (route: oral) Med Classific ation: Endocrine Immunizations Ordered Immunization Name Filled Immunization Name Date Status Comments Refusal Reason INFLUENZA, TIV (INACTIVATED) 2024-08-14 00:00:00 Vital Signs Vital Name Observation Time Observation Value Commen ts Temperature 2025-02-08 10:35:00.000 97.7 [degF] Temperature 2025-02-01 10:56:00.000 97.1 [degF] Temperature 2025-01-25 10:41:00.000 97.7 [degF] Temperature 2025-01-18 10:28:00.000 97.3 [degF] Temperature 2025-01-17 13:47:00.000 97.6 [degF] Pulse 2025-02-08 10:35:00.000 62 /min Pulse 2025-02-01 10:56:00.000 72 /min Pulse 2025-01-25 10:41:00.000 65 /min Pulse 2025-01-17 09:52:00.000 58 /min O2 Saturation (%) 2025-02-08 10:35:00.000 97 % O2 Saturation (%) 2025-01-17 09:52:00.000 97 % Respirations 2025-02-08 10:35:00.000 16 /min Respirations 2025-02-01 10:56:00.000 16 /min Respirations 2025-01-25 10:41:00.000 16 /min Respirations 2025-01-18 10:28:00.000 16 /min Systolic Blood Pressure 2025-02-08 10:35:00.000 140 mm [Hg] Systolic Blood Pressure 2025-02-01 10:56:00.000 148 mm [Hg] Systolic Blood Pressure 2025-01-25 10:41:00.000 130 mm [Hg] Systolic Blood Pressure 2025-01-18 10:28:00.000 140 mm [Hg] Systolic Blood Pressure 2025-01-17 09:52:00.000 126 mm [Hg] Diastolic Blood Pressure 2025-02-08 10:35:00.000 80 mm [Hg] Diastolic Blood Pressure 2025-02-01 10:56:00.000 80 mm [Hg] Diastolic Blood Pressure 2025-01-25 10:41:00.000 60 mm [Hg] Diastolic Blood Pressure 2025-01-18 10:28:00.000 70 mm [Hg] Diastolic Blood Pressure 2025-01-17 09:52:00.000 68 mm [Hg] Plan of Treatment Planned Activity [...] HEALTH.] Future Scheduled Test SKILLED NU RSE FOR MEDICATION ADMINISTRATION PER MEDICATION LIST TO BE PERFORMED DAILY [code = SKILLED NURSE FOR MEDICATION ADMINISTRATION PER MEDICATION LIST TO BE PERFORMED DAILY ] Future Scheduled Test SKILLED NU RSE TO PRE-POUR MEDICATION PER MEDICATION LIST DAILY [code = SKILLED NURSE TO PRE-POUR MEDICATION PER MEDICATION LIST DAILY ] Future Scheduled Test SKILLED NU RSE TO O/A OF PATIENTS MENTAL/BEHAVIORAL STATUS, ASSESS VITAL SIGNS WEEKLY ALLOW 2 PRNS FOR MEDICATION MANAGEMENT. [code = SKILLED NURSE TO O/A OF PATIENTS MENTAL/BEHAVIORAL STATUS, ASSESS VITAL SIGNS WEEKLY ALLOW 2 PRNS FOR MEDICATION MANAGEMENT.] Future Scheduled Test SKILLED NU RSE FOR O/A OF NEUROCOGNITIVE AND BEHAVIORAL STATUS [code = SKILLED NURSE FOR O/A OF NEUROCOGNITIVE AND BEHAVIORAL STATUS] Future Scheduled Test SKILLED NU RSE FOR O/A OF GENERAL HEALTH STATUS OF PAIN, CARDIAC, RESPIRATORY, GASTROINTESTINAL, GENITOURINARY, SKIN, NEUROLOGIC, ENDOCRINE SYSTEMS TO IDENTIFY CHANGES ASSOCIATED WITH EXACERBATION FOR EARLY INTERVENTION OF COMPLICATIONS WEEKLY [code = SKILLED NURSE FOR O/A OF GENERAL HEALTH STATUS OF PAIN, CARDIAC, RESPIRATORY, GASTROINTESTINAL, GENITOURINARY, SKIN, NEUROLOGIC, ENDOCRINE SYSTEMS TO IDENTIFY CHANGES ASSOCIATED WITH EXACERBATION FOR EARLY INTERVENTION OF COMPLICATIONS WEEKLY ] Future Scheduled Test SKILLED NU RSE TO ADMINISTER MEDICATIONS AM DAILY AND PRE-POUR MEDICATIONS. DAILY PER MEDICATION LIST. [code = SKILLED NURSE TO ADMINISTER MEDICATIONS AM DAILY AND PRE-POUR MEDICATIONS. DAILY PER MEDICATION LIST.] Future Scheduled Test SKILLED NU RSE FOR O/A AND SKILLED TEACHING OF COPING SKILLS TO MANAGE ANXIETY AND MAINTAIN SAFETY. [code = SKILLED NURSE FOR O/A AND SKILLED TEACHING OF COPING SKILLS TO MANAGE ANXIETY AND MAINTAIN SAFETY.] Future Scheduled Test SKILLED NU RSE FOR O/A AND SKILLED TEACHING RELATED TO MANAGEMENT OF DEPRESSIVE SYMPTOMS AND/OR DEPRESSION. SN TO REPORT SIGNIFICANT CHANGE IN DEPRESSIVE SYMPTOMS TO CLINICAL PROVIDER FOR EARLY INTERVENTION. [code = SKILLED NURSE FOR O/A AND SKILLED TEACHING RELATED TO MANAGEMENT OF DEPRESSIVE SYMPTOMS AND/OR DEPRESSION. SN TO REPORT SIGNIFICANT CHANGE IN DEPRESSIVE SYMPTOMS TO CLINICAL PROVIDER FOR EARLY INTERVENTION.] Future Scheduled Test SKILLED NU RSE TO PERFORM HOME SAFETY AND FALL ASSESSMENT AND PROVIDE INSTRUCTION TO IMPLEMENT HOME SAFETY AND FALL PREVENTION STRATEGIES. [code = SKILLED NURSE TO PERFORM HOME SAFETY AND FALL ASSESSMENT AND PROVIDE INSTRUCTION TO IMPLEMENT HOME SAFETY AND FALL PREVENTION STRATEGIES.] Future Scheduled Test SKILLED NU RSE TO REVIEW PATIENT MEDICATIONS. INSTRUCT PATIENT/CAREGIVER ON MONITORING OF EFFECTIVENESS, ADVERSE DRUG REACTIONS, SIDE EFFECTS OF ALL MEDICATIONS (PRESCRIPTION/-OTC), AND HOW AND WHEN TO REPORT PROBLEMS. [code = SKILLED NURSE TO REVIEW PATIENT MEDICATIONS. INSTRUCT PATIENT/CAREGIVER ON MONITORING OF EFFECTIVENESS, ADVERSE DRUG REACTIONS, SIDE EFFECTS OF ALL MEDICATIONS (PRESCRIPTION/-OTC), AND HOW AND WHEN TO REPORT PROBLEMS.] Future Scheduled Test SKILLED NU RSE TO [...] AND PSYCHOSOCIAL SUPPORT SERVICES.] Future Scheduled Test SKILLED NU RSE WILL MAINTAIN SITUATIONAL AWARENESS FOR SAFETY AND WILL NOTIFY CLINICAL RUBBER PRESS TENDER AND PHYSICIAN/PROVIDER WITH ANY CHANGE IN CONDITION. [code = SKILLED NURSE WILL MAINTAIN SITUATIONAL AWARENESS FOR SAFETY AND WILL NOTIFY CLINICAL RUBBER PRESS TENDER AND PHYSICIAN/PROVIDER WITH ANY CHANGE IN CONDITION.] Goal 2024-11-10 Patient Goal - T O REMAIN AT HOME AND GO OUT IN THE COMMUNITY ... Goal 2025-01-10 Patient Goal - T O REMAIN AT HOME AND GO OUT IN THE COMMUNITY ... Goal Patient Goal - T O REMAIN AT HOME AND GO OUT IN THE COMMUNITY ... TO BE COMPLIANT WITH ALL MEDICATIONS ADMINISTERED AND PREFILLED BY NURSE Goal Provider Goal - A PLAN OF CARE WILL BE ESTABLISHED THAT MEETS PATIENT'S GROUP HOME NEEDS AND INCLUDES PATIENT GOAL FOR HOME HEALTH. Goal Provider Goal - PATIENT WILL COMPLY WITH MEDICATION WHEN NURSE ADMINISTERS THROUGHOUT CERTIFICATION PERIOD. Goal Provider Goal - PATIENT WILL COMPLY WITH MEDICATION WHEN SKILLED NURSE PRE-POURS MEDICATION THROUGHOUT CERTIFICATION PERIOD. Goal Provider Goal - ALTERED MENTAL/BEHAVIORAL STATUS WILL BE IDENTIFIED PROMPTLY AND INTERVENTION INITIATED QUICKLY TO MINIMIZE ASSOCIATED RISKS THROUGHOUT CERTIFICATION PERIOD. Goal Provider Goal - PATIENT WILL BE ABLE TO PERFORM DAILY FUNCTIONS AND MAINTAIN OPTIMAL BEHAVIORAL/NEUROCOGNITIVE STATUS THROUGHOUT CERTIFICATION PERIOD. Goal Provider Goal - CHANGE IN GENERAL HEALTH STATUS WILL BE IDENTIFIED AND REPORTED TO PHYSICIAN FOR PROMPT INTERVENTION TO MINIMIZE ASSOCIATED RISKS THROUGHOUT CERTIFICATION PERIOD. Goal Provider Goal - PATIENT WILL COMPLY WITH MEDICATION WHEN SKILLED NURSE ADMINISTERS AND PRE-POURS MEDICATION THROUGHOUT CERTIFICATION PERIOD. Goal Provider Goal - PATIENT WILL BE ABLE TO PERFORM DAILY FUNCTIONS AND HAVE OPTIMAL IMPROVEMENT IN LEVEL OF ANXIETY THROUGHOUT CERTIFICATION PERIOD. Goal Provider Goal - PATIENT WILL REMAIN SAFE WITHOUT DECOMPENSATION IN DEPRESSIVE CONDITION, WHILE MAINTAINING OPTIMAL LEVEL OF MENTAL HEALTH AND WELL BEING THROUGHOUT CERTIFICATION PERIOD. Goal Provider Goal - PATIENT/CAREGIVER WILL VERBALIZE/DEMONSTRATE EFFECTIVE HOME SAFETY AND FALL PREVENTION STRATEGIES THROUGHOUT CERTIFICATION PERIOD. Goal Provider Goal - PATIENT/CAREGIVER WILL VERBALIZE UNDERSTANDING OF EDUCATION PROVIDED ON MEDICATIONS BY THE END OF THE CERTIFICATION PERIOD. Goal Provider Goal - PSYCHOSOCIAL NEEDS WILL BE IDENTIFIED AND PLAN IMPLEMENTED TO MINIMIZE RISK THROUGHOUT CERTIFICATION PERIOD. Goal Provider Goal - PATIENT WILL REMAIN SAFE IN THE COMMUNITY AND WILL BE FREE OF DANGER TO SELF AND OTHERS THROUGHOUT THE CERTIFICATION PERIOD. Encounters Start Date/Time End Date/Time Encounter Type Admission Type Attending [facility] Care Department Encounter ID Discharge Date Discharge Status Discharge Condition Discharge Reason Percent Goals Met 2024-09-16 00:00:00 2025-03-14 00:00:00 Outpatient RECERTIFIC ATION YAHAIRA LUIS [facility] [id number]
--- OUTSIDE RECORDS SUMMARY | 2025-02-11 17:33 | XMS_ITS | Clinical Summary ---
Author Organization Unknown Care Team Providers Care Snorkelling Instructor Name Role Phone ZIA FRANCISCO, CESARIO Unavailable Unavailabl galen LUIS RN, YAHAIRA Unavailable Unavailable Payers Payer Name Policy Type Policy Number Effective Date Expira tion Date [place] [id number] [place] [id number] Problems Condition Name Condition Details Condition Category [...] 2023-10 00:00: 00 09-16 23:59 :00 No [id number] Per instruc tions TWICE DAILY Per instructio ns TWICE DAILY (route: oral) Med Classific ation: Electroly te Balance-N utritiona l Products aspirin 81 mg tablet,javon yed release 2023-10 00:00: 00 Yes [id number] 1 tablet ONCE DAILY 1 tablet ONCE DAILY (route: oral) Med Classific ation: Hematolog ical Agents acetaminoph en 325 mg tablet 2023-10 00:00: 00 Yes [id number] 2 tablet NEEDED 2 tablet NEEDED (route: oral) Med Classific ation: Analgesic , Anti-infl ammatory or Antipyret ic albuterol sulfate HFA 90 mcg/actuati on aerosol inhaler 2023-10 00:00: 00 Yes [id number] 2 puff NEEDED 2 puff NEEDED (route: inhalation ) Med Classific ation: Respirato ry Therapy Agents atorvastati n 20 mg tablet 2023-10 00:00: 00 12-02 23:59 :00 No [id number] 1 tablet BEDTIME 1 tablet BEDTIME (route: oral) Med Classific ation: Cardiovas cular Therapy Agents Child Robitussin Cough-Chest DM 5 mg-100 mg/5 mL oral liquid 2023-10 00:00: 00 Yes [id number] 20 mL NEEDED 20 mL NEEDED (route: oral) Med Classific ation: Respirato ry Therapy Agents cholecalcif massiel (vitamin D3) 25 mcg (1,000 unit) chewable tablet 2023-10 00:00: 00 Yes [id number] 1 tablet DAILY 1 tablet DAILY (route: oral) Med Classific ation: Electroly te Balance-N utritiona l Products citalopram 40 mg tablet 2023-10 00:00: 00 Yes [id number] 1 tablet DAILY 1 tablet DAILY (route: oral) Med Classific ation: Central Nervous System Agents Colace 100 mg capsule 2023-10 00:00: 00 Yes [id number] 1 capsule 2 TIMES DAILY 1 capsule 2 TIMES DAILY (route: oral) Med Classific ation: Gastroint estinal Therapy Agents cyanocobala min (vit B-12) 1,500 mcg chewable tablet 2023-10 00:00: 00 Yes [id number] 1 tablet DAILY 1 tablet DAILY (route: oral) Med Classific ation: Electroly te Balance-N utritiona l Products famotidine 40 mg tablet 2023-10 00:00: 00 Yes [id number] 1 tablet DAILY 1 tablet DAILY (route: oral) Med Classific ation: Gastroint estinal Therapy Agents ferrous sulfate 325 mg (65 mg iron) tablet 2023-10 00:00: 00 Yes [id number] 1 tablet DAILY 1 tablet DAILY (route: oral) Med Classific ation: Electroly te Balance-N utritiona l Products lisinopril 40 mg tablet 2023-10 00:00: 00 Yes [id number] 1 tablet DAILY 1 tablet DAILY (route: oral) Med Classific ation: Cardiovas cular Therapy Agents loratadine 10 mg tablet 2023-10 00:00: 00 Yes [id number] 1 tablet DAILY 1 tablet DAILY (route: oral) Med Classific ation: Respirato ry Therapy Agents metoprolol succinate ER 25 mg tablet,exte nded release 24 hr 2023-10 00:00: 00 Yes [id number] 1 tablet DAILY 1 tablet DAILY (route: oral) Med Classific ation: Cardiovas cular Therapy Agents Milk of Magnesia 400 mg/5 mL oral suspension 2023-10 00:00: 00 Yes [id number] 30 mL NEEDED 30 mL NEEDED (route: oral) Med Classific ation: Gastroint estinal Therapy Agents multivitami n tablet 2023-10 00:00: 00 Yes [id number] 1 tablet DAILY 1 tablet DAILY (route: oral) Med Classific ation: Electroly te Balance-N utritiona l Products omeprazole 20 mg capsule,del ayed release 2023-10 00:00: 00 Yes [id number] 1 capsule DAILY 1 capsule DAILY (route: oral) Med Classific ation: Gastroint estinal Therapy Agents raloxifene 60 mg tablet 2023-10 00:00: 00 12-02 23:59 :00 No [id number] 1 tablet BEDTIME 1 tablet BEDTIME (route: oral) Med Classific ation: Endocrine Senna Laxative 8.6 mg tablet 2023-10 00:00: 00 Yes [id number] 2 tablet NEEDED 2 tablet NEEDED (route: oral) Med Classific ation: Gastroint estinal Therapy Agents Tums 200 mg (as calcium carbonate 500 mg) chewable tablet 2023-10 00:00: 00 Yes [id number] 1 tablet 2 TIMES DAILY 1 tablet 2 TIMES DAILY (route: oral) Med Classific ation: Gastroint estinal Therapy Agents ketoconazol e 2 % topical cream 2023-10 00:00: 00 10-24 23:59 :00 No [id number] Per instruc tions 2 TIMES DAILY Per instructio ns 2 TIMES DAILY (route: topical) Med Classific ation: Dermatolo gical atorvastati n 20 mg tablet 2023-10 00:00: 00 Yes [id number] 1 tablet DAILY 1 tablet DAILY (route: oral) Med Classific ation: Cardiovas cular Therapy Agents meloxicam 15 mg tablet 12-02 00:00: 00 Yes [id number] 1 tablet EVERY AM 1 tablet EVERY AM (route: oral) Med Classific ation: Analgesic , Anti-infl ammatory or Antipyret ic raloxifene 60 mg tablet 2023-10 00:00: 00 Yes [id number] 1 tablet DAILY 1 tablet DAILY (route: [...] AWARENESS FOR SAFETY AND WILL NOTIFY CLINICAL CAMPUS WELLNESS COORDINATOR AND PHYSICIAN/PROVIDER WITH ANY CHANGE IN CONDITION. [code = SKILLED NURSE WILL MAINTAIN SITUATIONAL AWARENESS FOR SAFETY AND WILL NOTIFY CLINICAL CAMPUS WELLNESS COORDINATOR AND PHYSICIAN/PROVIDER WITH ANY CHANGE IN CONDITION.] [...] CARE WILL BE ESTABLISHED THAT MEETS PATIENT'S DETENTION NEEDS AND INCLUDES PATIENT GOAL FOR HOME [...] End Date/Time Encounter Type Admission Type Attending [facility] Care Department Encounter ID Discharge Date Discharge Status Discharge Condition Discharge Reason Percent Goals Met 2024-09-16 00:00:00 2025-03-14 00:00:00 Outpatient RECERTIFIC ATION YAHAIRA LUIS [facility] [id number]
--- OUTSIDE RECORDS SUMMARY | 2025-02-11 17:33 | XMS_ITS | Data Portability ---
Author Organization [place] [facility], Allergy Address [address] [place] [address] Care Team Providers Care Web Site Administrator Name Role Phone [facility] Assessment Encounter Date Assessment Date Assessment LastModified by Organization Details LastModified Time 07/21/2024 07/21/2024 83-year-old female with right canal wall down mastoidectomy presents for left ear fullness. On examination there is dry squamous debris in the right mastoid cavity cleared thoroughly. Exam is stable. Left side reveals purulent otorrhea which was removed with suction. TM with perforation. Recommended otic drops and continue dry ear precaution. She will follow-up in 2 to 3 weeks to ensure full resolution of symptoms. sara Not available 07/21/2024 10:39:42 08/11/2024 08/11/2024 83-year-old female with right canal wall down mastoidectomy presents for reevaluation of left-sided otorrhea. On examination otorrhea has resolved. TM perforation is now dry. Recommended continue dry ear precaution bilaterally to prevent further infection. Follow-up in 6 months for mastoid debridement. sara Not available 08/11/2024 10:32:59 11/26/2024 11/26/2024 84-year-old female with right canal wall down mastoidectomy and profound hearing loss presents for reevaluation of the ears. She was found to have a left-sided tympanic membrane perforation at last visit. Otologic exam demonstrates clean right sided mastoid cavity. Right TM is intact and well aerated. Left external auditory canal with purulent debris, suctioned today. Left TM with stable dry perforation. Recommend topical CiproDex twice daily for 14 days. Reviewed drop administration and water precautions. Patient will return for revaluation in 2-3 weeks to assess for infection resolution. She is not interested in wearing amplification. [email or web address] Not available 11/26/2024 17:30:33 12/17/2024 12/17/2024 84-year-old female with right canal wall down mastoidectomy and profound hearing loss presents for reevaluation of the ears. She trialed topical CiproDex. Otologic exam is unremarkable for persistent obstruction or purulence. She is not interested in wearing amplification. Recommend routine mastoid debridement in 6 months, sooner with concerns. [email or web address] Not available 12/17/2024 12:21:41 Plan of Treatment Reminders Order Date Submit Date Provider Last Modified By Organization Details Last Modified Time Details Appointments Establish ed 15 2024 10:30A M BERTHA DONALD PA-C Not available Not available Not available Establish ed 15 2024 11:00A M EZIO RUDD PA-C Not available Not available Not available Lab None recorded. Referral None recorded. Procedures None recorded. Surgeries None recorded. Imaging None recorded. Medication Orders Ciprodex 0.3 %-0.1 % ear drops,[facility] 2024 025 [place] [facility][id number], [address], [place], [phone], 11/26/2024 14:38:25 tobramyci n 0.3 %-dexamet hasone 0.1 % eye drops,[facility] 2023 024 [place] [facility][id number], [address], [place], [id number], 07/21/2024 10:49:48 Patient TargetsNo targets recorded. Patient InstructionsNo instructions recorded. Reason for Referral None Reported. Problems Name Problem SNOMED Code Status Onset Date Resolution Date Notes Provider Name and Address Organization Details Recorded Time Otorrhea of carmena l ears [id number] 93869 Completed 201805/15/2024 Otorrhea , bilatera l; Note: Date Diagnose d: 12/18/2018 12:55 PM (H92.13) Not Available [facility] 4 02:43:50 Chronic mastoidi tis 29409974 Active 2013 Chronic mastoidi tis; CMS Risk: low risk CMS Treatmen t: establis hed problem (to examiner ): stable or improved Note: Date Diagnose d: 10/06/20 14 12:09 PM (383.1) Not Available [facility] 4 02:43:47 Chronic right mastoidi tis 06061177095 36286 Active 2015 Chronic mastoidi tis, right ear; Note: Date Diagnose d: 6 2:18 PM (H70.11) Not Available [facility] 4 02:43:58 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 Other disorder s followin g mastoide ctomy, right ear; Note: Date Diagnose d: 03/14/2017 12:30 PM (H95.191 ) Not Available [facility] 4 02:43:58 Impacted cerumen in left ear 06558740956 01200 Active 2016 Impacted cerumen, left ear; Note: Date Diagnose d: 03/14/2017 12:27 PM (H61.22) Not Available [facility] 4 02:43:47 Otorrhea of left ear 09552074387 25805 Active 2022 Otorrhea , left ear; Note: Date Diagnose d: 12/14/2022 10:35 AM (H92.12) Otorrh ea, left ear; Note: Date Diagnose d: 06/14/2020 11:19 AM (H92.12) ; Start Date : 06/14/20 20 Not Available [facility] 4 02:43:51 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 29069748070 84394 Active 2019 Central perforat ion of tympanic membrane , left ear; Note: Date Diagnose d: 06/14/2020 11:19 AM (H72.02) Note: Date Diagnose d: 06/14/2020 11:19 AM (H72.02) Not Available [facility] 4 01:06:32 Asymmetr ical sensorin eural hearing loss 970478853 Active 2013 Sensorin eural HL, asymmetr ic; CMS Risk: low risk CMS Treatmen t: establis hed problem (to examiner ): stable or improved Note: Date Diagnose d: 10/06/20 14 11:06 AM (389.16) Not Available [facility] 4 02:43:51 Granulom atous disorder of the skin and subcutan eous tissue 028319304 Active 2016 Granulom atous disorder of the skin and subcutan eous tissue, unspecif ied; Note: Date Diagnose d: 03/14/2017 12:31 PM (L92.9) Not Available [facility] 4 02:43:48 Mixed conducti ve and sensorin eural hearing loss, bilatera l 682126304 Active 2019 Mixed conducti ve and sensorin eural hearing loss, bilatera l; Note: Date Diagnose d: 0 11:16 AM (H90.6) Not Available [facility] 4 02:43:57 Dizzines s and giddines s 356872028 Active 2013 Dizzines s; Note: Date Diagnose d: 10/06/20 14 11:06 AM (780.4) Not Available [facility] 4 02:43:45 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 Procedures Surgical History Date Name Laterality Status Provider Name and Address Organization Details Recorded Time 4 Debridement of Mastoid Cavity right completed BERTHA DONALD PA-C [address] [place] [address],[address], [address], [facility] - [facility] 07/21/2024 10:38:34 Imaging Results None recorded. Procedure Notes None recorded. Medical Equipment None Reported. Medications Name Sig Start Date Stop Date Status Note LastModified by Organization Details LastModified Time atorvasta tin 20 mg tablet TAKE 1 TABLET BY MOUTH DAILY active Not Available Not Available No t Available citalopra m 40 mg tablet TAKE 1 TABLET BY MOUTH DAILY active Not Available Not Available No t Available pravastat in 40 mg tablet 2016 active Medicati on ID: [id number] D uration Value: 90 Brand Name: pravasta tin Send Method: E-Prescr ibed Sub s Allowed: subs OK Speci al Instruct ion: TK 1 T PO D Medica tionGene ricName: pravasta tin Not Available Not Available Not Available Lotrisone 1 %-0.05 % topical cream 1 a small amount to affected area 2015 active Medicati on ID: [id number] D uration Value: 14 Prescri bed By Name: RADHA Smallwood nd Name: Lotrison e Send Method: E-Prescr ibed Sub s Allowed: subs OK Medic ationGen ericName : Lotrison e Not Available Not Available Not Available Senna Lax 8.6 mg tablet 01/06 completed Medicati on ID: [id number] D uration Value: 30 Reason: () Brand Name: Senna Lax Send Method: E-Prescr ibed Sub s Allowed: subs OK Speci al Instruct ion: TK 1 T PO HS PRF CONSTIPA TION. USE IF NO BOWEL MOVEMENT FOR 2 TO 3 DA YS Medic ationGen ericName : Senna Lax Not Available Not Available Not Available Nystop 100,000 unit/gram topical powder 09/10 completed Medicati on ID: [id number] Du ration Value: 14 Reason: () Brand Name: Nystop S end Method: E-Prescr ibed Sub s Allowed: subs OK Speci al Instruct ion: NIESHA UNDER BREASTS UP TO THREE TIMES DAILY UNTIL RASH IS HEALED Tyree Belle Name: Nystop Not Available Not Available Not Available meloxicam 15 mg tablet active Not Available Not Available Not Available lisinopri l 20 mg tablet TAKE 1 TABLET BY MOUTH DAILY active Not Available Not Available No t Available famotidin e 40 mg tablet TAKE 1 TABLET BY MOUTH DAILY active Not Available Not Available No t Available Milk of Larry 400 mg/5 mL oral suspensio n 09/10 completed Medicati on ID: [id number] Re ason: () Brand Name: Milk of Larry Send Method: E-Prescr ibed Sub s Allowed: subs OK Medic ationGen ericName : Milk of Larry Not Available Not Available Not Available ciproflox acin 500 mg tablet 09/10 completed Medicati on ID: [id number] Du ration Value: 5 Reason: () Brand Name: ciproflo xacin HCl Send Method: E-Prescr ibed Sub s Allowed: subs OK Speci al Instruct ion: TK 1 T PO Q 12 H Medica tionGene ricName: ciproflo xacin HCl Not Available Not Available Not Available peg-elect rolyte solution 420 gram oral solution 09/10 completed Medicati on ID: [id number] Du ration Value: 1 Reason: () Brand Name: peg-elec trolyte soln Sen d Method: E-Prescr ibed Sub s Allowed: subs OK Speci al Instruct ion: MIX AND DRINK UTD Medi cationGe nericNam e: peg-elec trolyte soln Not Available Not Available Not Available aspirin 81 mg tablet,de layed release TAKE 1 TABLET BY MOUTH DAILY active Not Available Not Available No t Available tramadol 50 mg tablet 09/10 completed Medicati on ID: [id number] Re ason: () Brand Name: tramadol Send Method: E-Prescr ibed Sub s Allowed: subs OK Speci al Instruct ion: 1 tab PO q4-6 hours PRN pain Med icationG enericNa me: tramadol Not Available Not Available Not Available acetamino phen 500 mg tablet TAKE 2 TABLET BY MOUTH EVERY 8 HOURS NEEDED FOR MILD PAIN active Not Available Not Available No t Available triamcino lone acetonide 0.1 % topical cream APPLY TOPICALL Y TO THE AFFECTED AREA 1 TO 2 TIMES PER DAY FOR 2 TO 4 WEEKS active Not Available Not Available No t Available acetamino phen ER 650 mg tablet,ex tended release TAKE 1 TABLET BY MOUTH EVERY 8 HOURS NEEDED FOR PAIN active Not Available Not Available No t Available ofloxacin 0.3 % ear drops Instill 5 drop into left ear twice a day 09/10 completed Medicati on ID: [id number] Du ration Value: 5 Reason: () Brand Name: ofloxaci n Send Method: E-Prescr ibed Sub s Allowed: subs OK Medic ationGen ericName : ofloxaci n Not Available Not Available Not Available pravastat in 80 mg tablet TAKE 1 TABLET BY MOUTH DAILY active Not Available Not Available No t Available lorazepam 0.5 mg tablet 12/31 completed Medicati on ID: [id number] D uration Value: 30 Brand Name: lorazepa m Send Method: E-Prescr ibed Sub s Allowed: subs OK Speci al Instruct ion: TK 1 T PO D PRN Medi cationGe nericNam e: lorazepa m Not Available Not Available Not Available pravastat in 10 mg tablet 09/10 completed Medicati on ID: [id number] Du ration Value: 30 Reason: () Brand Name: pravasta tin Send Method: E-Prescr ibed Sub s Allowed: subs OK Medic ationGen ericName : pravasta tin Not Available Not Available Not Available triamcino lone acetonide 0.1 % dental paste active Not Available Not Available Not Available cyanocoba shai (vit B-12) 500 mcg tablet TAKE 1 TABLET BY MOUTH DAILY active Not Available Not Available No t Available meclizine 25 mg tablet 09/10 completed Medicati on ID: [id number] Du ration Value: 6 Reason: () Brand Name: meclizin e Send Method: E-Prescr ibed Sub s Allowed: subs OK Speci al Instruct ion: TK 1 T PO TID PRF VERTIGO Medicati onGeneri cName: meclizin e Not Available Not Available Not Available benzonata te 100 mg capsule TAKE 1 CAPSULE BY MOUTH THREE TIMES DAILY FOR UP TO 7 DAYS NEEDED FOR COUGH active Not Available Not Available No t Available cephalexi n 500 mg capsule 01/06 completed Medicati on ID: [id number] D uration Value: 5 Reason: () Brand Name: cephalex in Send Method: E-Prescr ibed Sub s Allowed: subs OK Speci al Instruct ion: TK 1 C PO BID FOR 5 DAYS Med icationG enericNa me: cephalex in Not Available Not Available Not Available triamcino lone acetonide 0.1 % topical ointment APPLY FILM TOPICALL Y TO THE AFFECTED AREA TWICE DAILY FOR 14 DAYS active Not Available Not Available No t Available ranitidin e 150 mg tablet 10/26 completed Medicati on ID: [id number] D uration Value: 90 Reason: () Brand Name: ranitidi ne HCl Send Method: E-Prescr ibed Sub s Allowed: subs OK Speci al Instruct ion: TK 1 T PO HS Medic ationGen ericName : ranitidi ne HCl Not Available Not Available Not Available Tobrex 0.3 % eye ointment 09/10 completed Medicati on ID: [id number] Re ason: () Brand Name: Tobrex S end Method: E-Prescr ibed Sub s Allowed: subs OK Medic ationGen ericName : Tobrex Not Available Not Available Not Available docusate sodium 100 mg capsule TAKE ONE CAPSULE BY MOUTH TWICE DAILY NEEDED FOR CONSTIPA TION active Not Available Not Available No t Available omeprazol e 20 mg capsule,d elayed release TAKE 1 CAPSULE BY MOUTH DAILY active Not Available Not Available No t Available raloxifen e 60 mg tablet TAKE 1 TABLET BY MOUTH DAILY active Not Available Not Available No t Available metoprolo l succinate ER 25 mg tablet,ex tended release 24 hr TAKE 1 TABLET BY MOUTH DAILY active Not Available Not Available No t Available Tylenol-C odeine #3 300 mg-30 mg tablet Take 1-2 tablet by mouth every four hours as needed for pain 09/10 completed Medicati on ID: [id number] Du ration Value: 7 Reason: () Brand Name: Tylenol- Codeine #3 Send Method: E-Prescr ibed Sub s Allowed: subs OK Medic ationGen ericName : Tylenol- Codeine #3 Not Available Not Available Not Available ibuprofen 600 mg tablet 09/10 completed Medicati on ID: [id number] Du ration Value: 15 Reason: () Brand Name: ibuprofe n Send Method: E-Prescr ibed Sub s Allowed: subs OK Speci al Instruct ion: TK 1 T PO Q 6 H PRN P Medica tionGene ricName: ibuprofe n Not Available Not Available Not Available polyethyl viki glycol 3350 17 gram/dose oral powder 09/10 completed Medicati on ID: [id number] Du ration Value: 14 Reason: () Brand Name: polyethy sophia glycol 3350 Sen d Method: E-Prescr ibed Sub s Allowed: subs OK Medic ationGen ericName : polyethy sophia glycol 3350 Not Available Not Available Not Available ketoconaz ole 2 % topical cream APPLY TOPICALL Y TO THE AFFECTED AREA TWICE DAILY FOR 2 WEEKS active Not Available Not Available No t Available lisinopri l 40 mg tablet TAKE 1 TABLET BY MOUTH DAILY active Not Available Not Available No t Available multivita min capsule 09/10 completed Medicati on ID: [id number] Re ason: () Brand Name: multivit carrillo Sen d Method: E-Prescr ibed Sub s Allowed: subs OK Medic ationGen ericName : multivit carrillo Not Available Not Available Not Available fluticaso ne propionat e 50 mcg/actua tion nasal spray,vasu pension 09/10 completed Medicati on ID: [id number] Du ration Value: 30 Reason: () Brand Name: fluticas one Send Method: E-Prescr ibed Sub s Allowed: subs OK Speci al Instruct ion: SPRAY TWICE IEN D Medica tionGene ricName: fluticas one Not Available Not Available Not Available clotrimaz ole 1 % topical cream 09/10 completed Medicati on ID: [id number] Du ration Value: 10 Reason: () Brand Name: clotrima zole Sen d Method: E-Prescr ibed Sub s Allowed: subs OK Speci al Instruct ion: APPLY 1 APPLICAT ION AA BID Medi cationGe nericNam e: clotrima zole Not Available Not Available Not Available loratadin e 10 mg tablet TAKE 1 TABLET BY MOUTH DAILY active Not Available Not Available No t Available amoxicill in 875 mg-potass ium clavulana te 125 mg tablet 09/10 completed Medicati on ID: [id number] Du ration Value: 10 Reason: () Brand Name: amoxicil zee-pot clavulan ate Send Method: E-Prescr ibed Sub s Allowed: subs OK Medic ationGen ericName : amoxicil zee-pot clavulan ate Not Available Not Available Not Available Ventolin HFA 90 mcg/actua tion aerosol inhaler INHALE 2 PUFFS INTO THE LUNGS EVERY 4 HOURS NEEDED FOR COUGH active Not Available Not Available No t Available tobramyci n 0.3 %-dexamet hasone 0.1 % eye drops,[facility] pension 4 drops twice daily for 2 weeks active Not Available Not Available No t Available Oyster Shell Calcium-5 00 500 mg (as carbonate 1,250 mg) tablet TAKE 1 TABLET BY MOUTH TWICE DAILY active Not Available Not Available No t Available ciproflox acin 0.3 %-dexamet hasone 0.1 % ear drops,[facility] pension SHAKE LIQUID AND INSTILL 4 DROPS TO LEFT EAR TWICE DAILY DIRECTED active Not Available Not Available No t Available DOK 12/31 completed Medicati on ID: [id number] D uration Value: 30 Brand Name: DOK Send Method: E-Prescr ibed Sub s Allowed: subs OK Speci al Instruct ion: TK 1 C PO BID Medi cationGe nericNam e: DOK Not Available Not Available Not Available Calcium 500 With D 500 mg-10 mcg (400 unit) tablet 2016 active Medicati on ID: [id number] D uration Value: 30 Brand Name: Calcium 500 With D Send Method: E-Prescr ibed Sub s Allowed: subs OK Speci al Instruct ion: TK 1 T PO BID Medi cationGe nericNam e: Calcium 500 With D Not Available Not Available Not Available FeroSul 325 mg (65 mg iron) tablet TAKE 1 TABLET BY MOUTH DAILY active Not Available Not Available No t Available Vitamin D3 25 mcg (1,000 unit) chewable tablet TAKE 1 TABLET BY MOUTH DAILY active Not Available Not Available No t Available Metamucil Fiber Singles 3.4 gram oral powder packet 09/10 completed Medicati on ID: [id number] Du ration Value: 14 Reason: () Brand Name: Metamuci l Fiber Singles Send Method: E-Prescr ibed Sub s Allowed: subs OK Speci al Instruct ion: MIX 1 PACKET WITH LIQUID AND TK PO BID Medi cationGe nericNam e: Metamuci l Fiber Singles Not Available Not Available Not Available Robitussi n Cough-Gia st Congestio n DM 10 mg-200 mg capsule 09/10 completed Medicati on ID: [id number] Re ason: () Brand Name: Pallavi in Cough-Ch est Yobani DM Send Method: E-Prescr ibed Sub s Allowed: subs OK Medic ationGen ericName : Pallavi in Cough-Ch est Yobani DM Not Available Not Available Not Available Vitals Date Recorded Body height Body mass index (BMI) Body weight Provider Name and Address Organization Details Last Updated DateTime 12/17/2024 162.56 cm 28.7 kg/m2 30717.[address] [place] [facility] 12/17/2024 11:22:58 Date Recorded Body height Body mass index (BMI) Body weight Provider Name and Address Organization Details Last Updated DateTime 07/21/2024 162.56 cm 27.1 kg/m2 94385.59 g Mary Reynolds [facility] 07/21/2024 10:15:47 Date Recorded Body height Body mass index (BMI) Body weight Provider Name and Address Organization Details Last Updated DateTime 08/11/2024 162.56 cm 27.1 kg/m2 31827.59 g Maura Garcia [facility] 08/11/2024 10:14:33 Date Recorded Body height Body mass index (BMI) Body weight Provider Name and Address Organization Details Last Updated DateTime 11/26/2024 162.56 cm 27.1 kg/m2 64745.59 g Mary Reynolds [place] [facility] 11/26/2024 14:13:03 Social History None recorded. Functional Status None recorded. Mental Status None recorded. Family History Nothing Reported. Medical History No medical history recorded. Gynecological HistoryNo gynecological history recorded. Obstetrics History GPAL:G 0 P 0 0 0 0 Past Encounters Encounter ID Performer Location Encounter Start Date Encounter Closed Date Diagnosis/Indication Diagnosis SNOMED-CT Code Diagnosis ICD10 Code Diagnosis Note BERTHA DONALD PA-C [facility] [address] [address] 07/21/2024 10:01:29 07/21/2024 10:30:26 Central perforation of left tympanic membrane [id number] 172141 H72.02 Chronic mastoiditis 8064 5004 H70.11 Otorrhea of left ear 771 9669081 405829 H92.12 [id number] BERTHA DONALD PA-C [facility] [address] [address] 08/11/2024 10:07:24 08/11/2024 10:27:32 Central perforation of left tympanic membrane 6294890847 005321 H72.02 Chronic mastoiditis 8064 5004 H70.11 Otorrhea of left ear 185 2123635 132742 H92.12 [id number] EZIO RUDD PA-C [facility] [address] [address] 11/26/2024 14:06:17 11/26/2024 14:40:15 Otorrhea of left ear 5095320188 641149 H92.12 Central pe rforation of left tympanic membrane 2794333884 101201 H72.02 Mixed cond uctive and sensorineural hearing loss, bilateral 495228126 H90.6 [id number] EZIO RUDD PA-C [facility] [address] [address] 12/17/2024 11:15:44 12/17/2024 11:29:44 Otorrhea of left ear 6191590968 517455 H92.12 Postmastoi dectomy complication 62127137 H95.191 Health Concerns Section Related Observation LastModified by Organization Detai ls LastModified Time None Recorded Concern Status LastModified by Organization Details LastModified Time None Recorded Advance Directives Directive None Recorded Payers Encounter Date Sequence Insurance Name Policy Number Policy Benson Covered Member ID Benson Member ID Guarantor Name 07/21/2024 1 [place] [facility] Pinky Melchor [id number] Pinky Melchor 08/11/2024 1 MED[place]ARE [place] [facility] Pinky Melchor [id number] Pinky Melchor 08/11/2024 2 [place] [facility] Pinky Melchor [id number] Pinky Melchor 11/26/2024 1 [place] [facility] Pinky Melchor [id number] Pinky Melchor 11/26/2024 2 [place] [facility] Pinky Melchor [id number] Pinky Melchor 12/17/2024 1 [place] [facility] Pinky Melchor [id number] Pinky Melchor 12/17/2024 2 [place] [facility] Pinky Melchor [id number] Pinky Melchor Notes Date Note Type Note Provider Name and Address Organization Details Recorded Time 07/21/2024 text/html 83-year-old jose roberto ward with history of right canal wall down mastoidectomy presents for evaluation of left ear fullness. She has been reporting decreased hearing and tenderness on this side for about a week now. TYLER GARDINER MD [address] [place] [address], [phone], [facility] - [facility] 07/22/2024 07:32:27 08/11/2024 text/html 83-year-old jose roberto ward with right sided canal wall down mastoidectomy presents for reevaluation of left-sided otorrhea. She has completed her TobraDex drops as prescribed. They have not noticed any further drainage from the ear. TYLER GARDINER MD [address] [place] [address], [phone], [facility] 08/11/2024 12:46:33 11/26/2024 text/html 84-year-old jose roberto ward with right canal wall down mastoidectomy presents for reevaluation of the ears. She was found to have a left-sided tympanic membrane perforation at prior visit. Patient with severe to profound sensorineural hearing loss bilaterally. She is not interested in wearing amplification. Denies otalgia, otorrhea, or hearing changes. HERBERT STEVENS MD [address] [place] [address],[address], [address], [facility] 11/27/2024 08:55:04 12/17/2024 text/html 84-year-old jose roberto ward with right canal wall down mastoidectomy and profound hearing loss presents for reevaluation of the ears. She trialed topical CiproDex twice daily for 14 days. She is not interested in wearing amplification. TYLER GARDINER MD [address] [place] [address], [place], [address], [place] [facility] 12/18/2024 08:00:43 OBGyn Episode No OBEpisode recorded.
--- OUTSIDE RECORDS SUMMARY | 2025-02-11 17:33 | XMS_ITS | Encounter Summary ---
Author Organization [facility] Address [address] [place] [address] Care Team Providers Care Meat Carver Name Role Phone Elio Box Primary Care Provider [phone] Reason for Visit * Reason Comments Annual Exam Encounter Details Date Type Department Care Team ([facility] Contact Info) Description 02/10/2025 12:00 PM EDT Office Visit Adult Medicine [facility] [address] [place] [address] Elio Box PA [address] [place] [address] Routine general medical examination at a health care facility (Primary Dx); Furuncle; Mild intellectual disability; Gastroesophageal reflux disease without esophagitis; Primary hypertension; Osteopenia, unspecified location; Dyslipidemia; Anxiety; Vitamin D deficiency; Secondary hypertension; MCI (mild cognitive impairment); Generalized anxiety disorder; Hyperlipidemia, unspecified hyperlipidemia type; Benign essential hypertension; Gastroesophageal reflux disease with esophagitis without hemorrhage Social History Tobacco Use Types Packs/Day Years [...] on file documented as of this encounter Last Filed Vital Signs Vital Sign Reading [...] Mass Index 31.93 02/10/2025 11:55 AM EDT documented in this encounter Ordered Prescriptions Prescription Sig Dispense Quantity Refills Last Filled Start Date End Date mupirocin (BACTROBAN) 2 % ointment Apply topically 2 (two) times a day for 10 days. 22 g 1 02/10/2025 documented in this encounter Progress Notes * NOLAN Trent - 02/10/2025 12:00 PM EDT CHIEF COMPLAINT: Annual Exam IDENTIFIER: Pinky Melchor is a 84 y.o. old female who presents for evaluation of general medical health. HPI: Complaints at today's visit: She does complain of some superficial cysts mostly around the neck area she has had these before it sounds like she might be an issue due to repetitive picking and scratching. Nurse has been applying some sort of antibiotic cream to the area apparently Chronic medical illnesses: See below Patient does try to eat a balanced diet, does exercise regularly Patient does not smoke, patient does not drink alcohol in excess, patient does not use street drugs, patient does not drink caffeinated beverages in excess. Patient is disabled Health Maintenance: Due for labs ROS: GENERAL: No malaise, significant weight loss or fever HEENT: No changes in hearing or vision, nose bleeds or other nasal problems NECK: No lumps, goiter, pain or significant neck swelling RESPIRATORY: No cough, wheezing or shortness of breath CARDIOVASCULAR: No chest pain, leg swelling or palpitations BREAST: no lumps, discharge, pain or change in skin GI: No abdominal discomfort, blood in stools or black stools : No dysuria, frequency or incontinence ROOFING SUBCONTRACTOR: No abnormal vaginal bleeding or abnormal vaginal discharge. MUSCULOSKELETAL: No joint pain or swelling, back pain, or muscle pain. SKIN: See above PSYCH: No sleep disturbance, mood disorder or recent psychosocial stressors. HEMATOLOGY/LYMPHOLOGY No prolonged bleeding, easy bruisability or swollen nodes ENDOCRINE: No cold or heat intolerance, polyuria, polydipsia or goiter. NEURO: No persistent headache, syncope, seizures, weakness or numbness PAST MEDICAL HISTORY: Patient Active Problem List Diagnosis Date Noted Hyperlipemia 12/10/2024 Other specified disorders of bone density and structure, unspecified site 12/10/2024 Occlusion and stenosis of unspecified carotid artery 12/10/2024 Secondary hypertension 2024 Bilateral primary osteoarthritis of knee 2024 Gastroesophageal reflux disease with esophagitis without hemorrhage 2024 Generalized anxiety disorder 2024 MCI (mild cognitive impairment) 2024 Allergic rhinitis 07/28/2024 Diverticulosis of colon 04/13/2024 Benign essential hypertension 04/13/2024 Vitamin D deficiency 08/30/2022 Vitamin B12 deficiency 08/30/2022 Basal cell carcinoma 01/03/2020 Difficulty swallowing liquids 05/27/2019 Carotid stenosis 10/21/2018 Chronic venous insufficiency 01/15/2018 Erosive esophagitis 01/15/2018 Hearing loss in left ear 07/14/2015 Hiatal hernia 03/09/2014 Diverticulosis 05/08/2012 Mild intellectual disability 03/22/2011 GERD (gastroesophageal reflux disease) 03/22/2011 OA (osteoarthritis) of knee 03/22/2011 Osteopenia 03/22/2011 Lichen simplex chronicus 03/22/2011 Anxiety 03/22/2011 Dyslipidemia 03/22/2011 Hypertension 03/22/2011 Past Surgical History: Procedure Laterality Date CATARACT EXTRACTION Bilateral 01/2013 PROCEDURE: HISTORICAL CATARACT REMOVAL; COMMENT: b/l COLONOSCOPY 05/2014 PROCEDURE: HISTORICAL COLONOSCOPY; COMMENT: Dr. Hyde at [facility] - 3 mm cecal tubular adenoma COLONOSCOPY 05/08/2012 PROCEDURE: HISTORICAL COLONOSCOPY; COMMENT: sigmoid diverticulosis; no ischemia. COLONOSCOPY 02/08/2012 PROCEDURE: HISTORICAL COLONOSCOPY; COMMENT: ulcers ascending colon: ischemic colitis. OTHER SURGICAL HISTORY 07/2011 PROCEDURE: MAMMOGRAM OTHER SURGICAL HISTORY PROCEDURE: HISTORY OTHER; COMMENT: nose - removal of skin cancer UPPER GASTROINTESTINAL ENDOSCOPY 03/09/2014 PROCEDURE: [facility] UPPER [facility] PERFORMED; COMMENT: No Barretts on biopsy, 3 cm HH. Most Recent Immunizations Administered Date(s) Administered Influenza trivalent, 0.5mL (Fluad) 65yo and older 07/18/2023 Influenza trivalent, 0.5mL, preservative free (Fluarix; FluLaval; Fluzone) ages 6mo and older (Afluria) 3 years and older 06/21/2015 Influenza trivalent, with preservative (Fluzone; Afluria) 6mo and older 06/29/2013 Influenza, Unspecified 06/14/2022 HEATHER/Pantry SARS-CoV-2 COVID-19, vector-nr, [id number], preservative free 01/11/2021 Moderna SARS-CoV-2 COVID-19, mRNA, LNP-S, preservative free 03/01/2022 Pfizer (ages 12 & older) Bivalent, COVID-19 08/22/2022 Pfizer SARS-CoV-2 COVID-19, mRNA, LNP-S, preservative free 08/29/2021 Pneumococcal conjugate 13 valent (Prevnar 13, PCV13) 2mo and older 03/06/2017 Pneumococcal polysaccharide 23 valent (Pneumovax 23) 2yo and older 04/06/2011 TD, Adsorbed, Preservative Free 03/28/2015 Tdap Tetanus diptheria acellular pertussis (Boostrix; Adacel) 7yo and older 03/31/2013 Zoster Live 04/17/2016 Zoster recombinant (Shingrix) 19yo and older 02/05/2018 HEALTH MAINTENANCE: Health Maintenance Topic Date Due RSV Immunization Adult Patients (1 - 1-dose 75+ series) Never done Zoster Vaccines (2 of 2) 04/02/2018 Social Influencers of Health Screening Never done COVID-19 Vaccine ( - 2023- season) 2024 Medicare Annual Wellness Visit 08/27/2024 DTaP,Tdap,and Td Vaccines (3 - Td or Tdap) 03/28/2025 Hypertension/CHF/CAD Annual BMP Blood Test 04/15/2025 Falls Risk Assessment 12/01/2025 Depression Screening 12/01/2025 Cholesterol Screening (Lipid Panel) 04/15/2029 Osteoporosis Screening (Bone Density Screening) 11/26/2034 Influenza Vaccine Completed Pneumococcal Vaccine: 50+ Years Completed HIB Vaccines Aged Out Hepatitis B Vaccines Aged Out IPV Vaccines Aged Out Hepatitis A Vaccines Aged Out MMR Vaccines Aged Out Varicella Vaccines Aged Out Meningococcal ACWY Vaccine Aged Out Meningococcal B Vaccine Aged Out HPV Vaccines Aged Out RSV Immunization Patients Under 20 months Aged Out SOCIAL HISTORY: Social History Tobacco Use Smoking status: Never Smokeless tobacco: Never Substance Use Topics Alcohol use: No Comment: none FAMILY HISTORY: Family History Problem Relation Name Age of Onset No Known Problems Sister Maryan No Known Problems Sister Wendy No Known Problems Sister Muna Colon cancer Neg Hx Breast cancer Neg Hx Family Status Relation Name Status Sister Maryan Alive Sister Wendy Alive Sister Muna Alive Neg Hx (Not Specified) Mother Father MGM MGF PGM PGF No partnership data on file MEDICATIONS DISCONTINUED/REORDERED: There are no discontinued medications. ACTIVE MEDICATIONS: Outpatient Medications Marked as Taking for the 02/10/25 encounter (Office Visit) with NOLAN Trent Medication Sig Dispense Refill acetaminophen (Tylenol Extra Strength) 500 mg tablet Take 2 tablets (1,000 mg total) by mouth every8 (eight) hours if needed for mild pain. 180 tablet 2 aspirin 81 mg EC tablet TAKE 1 TABLET BY MOUTH ONCE DAILY 30 tablet 3 calcium carbonate (CALCIUM 500 ORAL) Take 1 Tablet by mouth 2 times daily. calcium carbonate (Tums) 500 mg (200 mg elemental calcium) chewable tablet Chew 1 tablet (500 mg total) 2 (two) times a day. 60 each 11 cholecalciferol, vitamin D3, 25 mcg (1,000 unit) tablet,chewable Take 1 Tablet by mouth daily. citalopram (CeleXA) 40 mg tablet TAKE 1 TABLET BY MOUTH DAILY 90 tablet 1 cyanocobalamin (VITAMIN B-12) 500 mcg tablet TAKE 1 TABLET BY MOUTH DAILY 90 tablet 1 cyanocobalamin, vitamin B-12, 1,500 mcg tablet,chewable Take 1 Tablet by mouth daily. docusate sodium (COLACE) 100 mg capsule TAKE ONE CAPSULE BY MOUTH TWICE DAILY NEEDED FOR CONSTIPATION 180 capsule 0 famotidine (PEPCID) 40 mg tablet TAKE 1 TABLET BY MOUTH DAILY 90 tablet 1 famotidine (PEPCID) 40 mg tablet TAKE 1 TABLET BY MOUTH DAILY 30 tablet 3 FeroSuL 325 mg (65 mg iron) tablet TAKE 1 TABLET BY MOUTH DAILY 90 tablet 1 guaifenesin/dextromethorphan (ROBITUSSIN-DM ORAL) Take by mouth 4 times daily as needed. ketoconazole (NIZORAL) 2 % cream Apply to affected areas twice daily for 2 weeks 30 g 0 lisinopriL (PRINIVIL,ZESTRIL) 20 mg tablet TAKE 1 TABLET BY MOUTH DAILY 90 tablet 3 lisinopril (PRINIVIL,ZESTRIL) 40 mg tablet TAKE 1 TABLET BY MOUTH DAILY 90 tablet 3 loratadine (CLARITIN) 10 mg tablet TAKE 1 TABLET BY MOUTH DAILY 90 tablet 0 magnesium hydroxide (MILK OF MAGNESIA ORAL) Take by mouth. Prn meloxicam (MOBIC) 15 mg tablet Take 1 tablet (15 mg total) by mouth 1 (one) time each day if neededfor mild pain or moderate pain. 30 tablet 2 metoprolol succinate (TOPROL-XL) 25 mg 24 hr tablet TAKE 1 TABLET BY MOUTH DAILY 90 tablet 1 metoprolol succinate (TOPROL-XL) 25 mg 24 hr tablet TAKE 1 TABLET BY MOUTH DAILY 90 tablet 1 MULTIVITAMIN ORAL Take 1 Tab by mouth daily. omeprazole (PriLOSEC) [address] capsule TAKE 1 CAPSULE BY MOUTH DAILY 90 capsule 3 raloxifene (EVISTA) 60 mg tablet TAKE 1 TABLET BY MOUTH DAILY 90 tablet 1 sennosides 8.6 mg capsule Take by mouth as needed. triamcinolone (KENALOG) 0.1 % ointment Apply 1 Film topically 2 times daily for 14 days. Ventolin HFA 90 mcg/actuation inhaler INHALE 2 PUFFS INTO THE LUNGS EVERY 4 HOURS NEEDED FOR COUGH 18 g 0 ALLERGIES: Allergies Allergen Reactions [id number] No reaction documented PHYSICAL EXAM: Visit Vitals BP 130/80 Pulse 61 Temp 36 ??C (96.8 ??F) (Temporal) Resp 14 Ht 1.575 m (62 ) Wt 79.2 kg (174 lb 9.6 oz) BMI 31.93 kg/m?? OB Status Postmenopausal Smoking Status Never BSA 1.8 m?? Body mass index is 31.93 kg/m??. APPEARANCE: Alert and in no acute distress EYES: PERRLA, conjunctiva and sclera normal. Normal fundal exam. EARS: External ears normal. Canals clear. TMs normal. NOSE/SINUS: Nares normal. Septum midline. Mucosa normal. No drainage or sinus tenderness. MOUTH/THROAT: no erythema or exudates NECK: Neck supple, no adenopathy, thyroid symmetric and of normal size HEART: RRR with normal S1 and S2, no murmurs, no gallops, no JVD appreciated CHEST: non-tender LUNG: clear to auscultation BREAST (FEMALE): Exam deferred LYMPH NODES: grossly normal ABDOMEN: Bowel sounds normoactive, no bruits, soft, non-tender, without organomegaly or palpable masses ROOFING SUBCONTRACTOR (FEMALE): Exam deferred RECTAL (FEMALE): Exam deferred BACK: No pain to palpation with good flexion and extension EXTREMITIES: Extremities warm and well perfused without clubbing, cyanosis, or edema NEURO: Awake, alert and oriented x 3 with symmetrical reflexes SKIN: She does have a few papules and pustules mostly around the left side of the neck looks like superficial follicular inflammation. No sign of abscess LABS: Lab Results Component Value Date CHOL 229 (A) 04/15/2024 Lab Results Component Value Date HDL 76 04/15/2024 No results found for: LDLCALC Lab Results Component Value Date TRIG 98 04/15/2024 No results found for: CHOLHDL IMPRESSION: 1. Routine general medical examination at a health care facility 2. Furuncle 3. Mild intellectual disability 4. Gastroesophageal reflux disease without esophagitis 5. Primary hypertension 6. Osteopenia, unspecified location 7. Dyslipidemia 8. Anxiety 9. Vitamin D deficiency 10. Secondary hypertension 11. MCI (mild cognitive impairment) 12. Generalized anxiety disorder 13. Hyperlipidemia, unspecified hyperlipidemia type 14. Benign essential hypertension 15. Gastroesophageal reflux disease with esophagitis without hemorrhage PLAN: 1. I did prescribe some Bactroban ointment for the skin lesions. Consider dermatology if no improvement. 2. On recheck the blood pressure looks a little better it is pretty close to borderline but seems to be below 140 systolic. It sounds like she sometimes spits out her medication. She does have a nurse that helps administer the meds so they are working on this. 3. Hyperlipidemia, continue statin. 4. GERD, seems to be controlled with the present regimen. 5. Osteopenia encourage calcium and vitamin D. Genetic cancer syndrome screening done: negative Glaucoma screening regularly Discussed healthy dietary choices. Discussed increasing dietary fiber through fruits, veggies, whole grains. Advised the patient to exercise 30mins a day most days of the week. Advised patient to see a dentist at least yearly. Advised patient to use sunscreen, hats, clothing while outdoors in direct sunlight. Advised patient to wear a seatbelt while in the car. Advised the patient to check smoke/fire alarms at home regularly. Pelvic exams and PAPs regularly Discussed safe sex practices Self breast exams monthly. I have reviewed the following sections of the chart: Past Medical History Family History Social History Health Maintenance: Up to date Advised the patient to call me if any problems. Patient understands the plan. Patient is in agreement with the plan. NOLAN Trent on 02/10/2025 at 12:21 PM EDT documented in this encounter Plan of Treatment Upcoming Encounters Date Type Department Care Team (Late st Contact Info) Description 03/17/2025 10:20 AM EDT Appointment Radiology Department - [address] [phone] 08/27/2025 12:45 PM EST Office Visit Adult Medicine [address] [phone] Elio Box PA [address] [place] [address] documented as of this encounter Visit Diagnoses Diagnosis Routine general medical examination at a health care facility- Primary Furuncle Carbuncle and furuncle of unspecified site Mild intellectual disability Mild mental retardation Gastroesophageal reflux disease without esophagitis Esophageal reflux Primary hypertension Unspecified essential hypertension Osteopenia, unspecified location Dyslipidemia Other and unspecified hyperlipidemia Anxiety Anxiety state, unspecified Vitamin D deficiency Secondary hypertension Other secondary hypertension, unspecified MCI (mild cognitive impairment) Mild cognitive impairment, so stated Generalized anxiety disorder Hyperlipidemia, unspecified hyperlipidemia type Benign essential hypertension Essential hypertension, benign Gastroesophageal reflux disease with esophagitis without hemorrhage Encounter for screening mammogram for breast cancer documented in this encounter Additional Health Concerns Assessment Noted Time PHQ-9 Depression Total Score: 0 12/01/19 25 8:46 AM EST A fall risk assessment has been complete d for the patient 12/01/2024 8:46 AM EST documented as of this encounter Care Teams Meat Carver Relationship Specialty Start Date End Date Elio Box PA [address] [place] [address] PCP - General Internal Medicine 04/19/21 documented as of this encounter
== END 2025-02-11 16:20 | disposition home or self-care (01) ==
LOC: HO.CT 16:19
PROVIDERS: PCP Internal Medicine; Visit Provider Internal Medicine
DX: G93.49 Other encephalopathy (principal)
CPT/HCPCS: 70450

== ENCOUNTER → 2025-02-11 16:30 | Outpatient (BNV) | payer MEDICARE, MEDICAID, SELFPAY | PROVIDERS: PCP Internal Medicine; Visit Provider Specialist | DX: G93.40 Encephalopathy, unspecified (principal) | CPT/HCPCS: 70450 ==